=== PATIENT | male | born 1935 | race Caucasian/White ===

== ENCOUNTER 2020-06-07 12:21 | Inpatient (IN) ==
[2020-06-07] MEDS ORDERED: IOPAMIDOL 100 ML BOTTLE IV ONE (12:22)
--- NOTE | 2020-06-07 12:36 | Emergency Department Note ---
HPI General Chief complaint: Shortness of Breath/Dyspnea Stated complaint: shortness of breath Time Seen by Provider: 06/07/20 12:29 Source: patient Mode of arrival: ambulatory Limitations: no limitations History of Present Illness HPI Narrative: Narrative:-year old patient presenting with chief complaint of dyspnea. Patient's dyspnea arose this morning and has been persistent all day with out associated symptoms of substernal chest pain, fever, cough, sputum, rash, wheezing. Patient without significant cough. No exposure to known ill persons. Symptoms are nonprogressive not associated with chest pain or any other issues at this time. Patient has had these symptoms one other occasion and it was a reaction to Ativan. Patient does feel like he is breathing quickly. Related Data Home Medications Medication Instructions Recorded Confirmed acetaminophen 500 mg tablet 1,000 mg PO BID PRN tab 01/29/18 01/05/20 aspirin 325 mg tablet 325 mg PO QAM tab 01/29/18 01/05/20 bisacodyl 5 mg tablet,delayed 10 mg PO QDAY tab 01/29/18 01/05/20 release ferrous sulfate 325 mg (65 mg 325 mg PO QDAY tab 01/29/18 01/05/20 iron) tablet vitamins A,C,A-tsxt-drsgnt 14,320 1 cap PO BID cap 01/29/18 12/07/19 unit-226 mg-200 unit capsule guaifenesin 1,200 mg tablet, 1,200 mg PO BID tab 01/18/19 01/05/20 extended release 12 hr lisinopril 5 mg tablet 5 mg PO QDAY 01/18/19 11/19/19 nitroglycerin 0.4 mg sublingual 0.4 mg SUBLINGUAL Q5-15M PRN 01/18/19 01/05/20 tablet atorvastatin 20 mg tablet 40 mg PO QHS tab 12/07/19 01/05/20 clindamycin phosphate 1 % lotion 1 applic TOPICAL BID 12/07/19 01/05/20 clopidogrel 75 mg tablet 75 mg PO QDAY 12/07/19 01/05/20 empagliflozin 10 mg tablet 10 mg PO QDAY 12/07/19 01/05/20 metformin 500 mg tablet 250 mg PO QDAY tab 12/07/19 01/05/20 multivitamin 1 tab PO QDAY 12/07/19 01/05/20 famotidine 20 mg tablet 40 mg PO QHS tab 01/05/20 01/05/20 hydrochlorothiazide 12.5 mg capsule 12.5 mg PO BID 01/05/20 01/05/20 metoprolol succinate 100 mg 50 mg PO BID tab 01/05/20 01/05/20 tablet,extended release 24 hr empagliflozin [Jardiance] 10 mg PO QDAY 06/07/20 06/07/20 mupirocin 1 applic TOPICAL TID 06/07/20 06/07/20 Previous Rx's Medication Instructions Recorded magnesium oxide 400 mg PO QDAY #90 cap 04/10/20 Allergies Allergy/AdvReac Type Severity Reaction Status Date / Time iodine AdvReac Intermediate Hives Verified 06/07/20 12:24 Review of Systems ROS ROS Narrative: Narrative: All systems ED: reviewed and negative except as stated. 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) Hypertensive disorder (Chronic) Hyperlipidemia (Chronic) Angina pectoris (Chronic) 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) Multiple nodules of lung (Chronic) Asbestosis (Chronic) Chronic obstructive lung disease (Chronic) Shortness of breath (Chronic) Peripheral neuropathy (Chronic) Neck pain (Chronic) Insomnia (Chronic) Failure to thrive (Chronic) History of bladder cancer (Chronic) Overweight (Chronic) GERD (gastroesophageal reflux disease) (Chronic) Depressive disorder (Chronic) Chronic anemia (Chronic) Squamous cell carcinoma (Chronic) Medical History (Updated 06/07/20 @ 15:22 by Robles Zurita MD) Abdominal pain (Resolved) Acute bronchitis (Resolved) Angina pectoris (Chronic) Asbestosis (Chronic) Chest pain (Chronic) Chronic anemia (Chronic) Chronic obstructive lung disease (Chronic) CKD (chronic kidney disease), stage III (Chronic) Coronary artery disease (Chronic) He reports myocardial infarction around 2013 or 2012 and 3 stents at the same time. 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 While I think his primary renal p esteban is diabetes certainly this degree of hypertension could contribute as well. 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 Shortness of breath (Chronic) Squamous cell carcinoma (Chronic) ST elevation myocardial infarction (STEMI) (Chronic) Tingling in extremities (Resolved) Type 2 diabetes mellitus with stage 3 chronic kidney disease, without long-term current use of insulin (Chronic) Given established GFR around 30 to 40 cc/min and moderate proteinuria currently estimated to be 1.5 g/day and a negative work-up for anything but diabetes and hypertension, the diagnosis of diabetic nephropathy is most likely Surgical History History of hernia repair (Chronic ~1955) History of total cystectomy (Chronic) History of urostomy (Chronic ~2014) With bladder repair - urostomy bag in place Hx of CABG (Chronic) 4 stents in total placed now S/P skin biopsy (Chronic ~1985) Family History Brother Diabetes mellitus Father Jaundice Sister Malignant tumor of breast Diabetes mellitus Unknown Diabetes mellitus Grandmother Diabetes mellitus Maternal Mother Heart disease Social History Smoking Status: Former smoker Alcohol Intake Frequency: a few times a month Substance Use: does not use Exam Narrative Narrative: Vital signs and evaluated for evidence of hypoxia or hemodynamic compromise specifically tachycardia/hypotension General: Alert, interactive, appropriate Head: Atraumatic, normocephalic Eyes: Extraocular movements intact, sclera anicteric, no conjunctival injection Ears: Pinnae normal, no discharge Mouth: Oral mucosa moist, no acute swelling or evidence of infection Nares: No nasal discharge, patent bilaterally Neck: Trachea midline, full range of motion Chest: Symmetrical chest wall rise, breathing rapidly with labored respirations not in extremis; not hypoxic on O2 however on room air was Cardiovascular: Patient with excellent perfusion to the extremities; without tachycardia Extremities: Full range of motion joints, no obvious deformities Neuro: Alert, oriented x3, cranial nerves II through XII grossly intact, patient without lateralizing findings such as weakness, or abnormal reflexes Psychiatric: Normal affect, normal mood General Limitations: no limitations Course Vital Signs Vital signs: Vital Signs Temperature 97.9 F 06/07/20 12:21 Pulse Rate 87 06/07/20 12:21 Respiratory Rate 30 H 06/07/20 12:21 Blood Pressure 170/89 06/07/20 12:21 Pulse Oximetry (%) 93 06/07/20 12:21 Temperature 97.9 F 06/07/20 12:21 Pulse Rate 88 06/07/20 15:01 Respiratory Rate 32 H 06/07/20 15:01 Blood Pressure 131/68 06/07/20 15:01 Pulse Oximetry (%) 99 06/07/20 15:01 [facility] Narrative Medical decision making narrative: Acute dyspnea differential diagnosis considered in this case included TN, heart failure, cardiac tamponade, bronchospasm, pulmonary embolism, pneumothorax, pneumonia or infection, and upper airway obstruction. After review of chart and patient history/physical exam/labs as well as imaging the differential diagnosis addressed was acute hypoxic respiratory failure, COPD exacerbation, pneumonia, sepsis, pulmonary edema, pneumothorax, metabolic acidosis, acute respiratory distress syndrome, panic attack, airflow obstruction, restrictive lung disease, aspiration, congestive heart failure, hypercapnia, influenza, bronchitis, upper respiratory infection, pulmonary embolism, cardiac tamponade, valvular obstruction, TN/ACS, and arrhythmia in my medical opinion this patient has dyspnea that reasonably does/not require admission to the hospital. Wells criteria applied: Clinical symptoms of DVT would have been awarded 3 points, other diagnosis less likely than PE would have been awarded 3 points, immobilization 3 or more days or surgery in the previous 4 weeks would have been awarded 1.5 points, history of previous DVT/PE would have been awarded 1.5 points, with hemoptysis, and malignancy each receiving one point if positive. PERC rule is applied when well score is less than 2 and the following factors were considered: Age less than 50, heart rate less than 100, oxyhemoglobin saturation greater than 95%, no hemoptysis, no estrogen use, no prior DVT/PE, no unilateral leg swelling, no surgery trauma requiring hospitalization within the past 4 weeks: had the PERC rule been positive patient would have received d-dimer with follow-up CTPA if positive. Discussed case with the hospitalist Dr. Duran and the consensus medical opinion is to admit the patient to the hospital for management. Noted to have bilateral lower lobe pneumonia. Rocephin is given lactate was negative here in the emergency department patient noted to be hypoxic on room air as well as tachypneic. Patient was not tachycardic or hypotensive during his stay. Patient did have positive d-dimer and CTPA did not demonstrate a PE however patient does have bilateral lower lobe infiltrates, also patient is noted to have elevated white blood cell count. Lab Data Result diagrams: 06/07/20 12:34 06/07/20 12:33 Labs: Lab Results 06/07/20 06/07/20 06/07/20 Range/Units 12:33 12:33 12:34 WBC 20.8 H (4.50-11.00) K/mcL RBC 5.14 (4.63-6.08) M/mcL Hgb 15.8 (13.7-17.5) g/dL Hct 50.1 (40.1-51.0) % MCV 97.5 (80.0-100.0) fL MCH 30.7 (26.0-34.0) pg MCHC 31.5 (31.0-36.0) g/dL RDW 14.2 (11.5-14.5) % Plt Count 234 (140-440) K/mcL MPV 10.3 (7.4-10.4) fL Gran % 90.8 H (38.0-78.0) % Lymph % (Auto) 3.5 L (15.5-49.0) % Swain % (Auto) 4.6 (1.0-12.0) % Eos % (Auto) 0.7 (0.0-7.0) % Baso % (Auto) 0.4 (0.0-2.0) % Gran # 18.91 H (1.80-8.00) K/mcL Lymph # (Auto) 0.72 L (1.50-4.80) K/mcL Swain # (Auto) 0.96 H (0.10-0.90) K/mcL Eos # (Auto) 0.15 (0.00-0.70) K/mcL Baso # (Auto) 0.09 (0.00-0.30) K/mcL D-Dimer (0.00-0.40) ug/ml ABG Methemoglobin (0.4-1.5) % VBG pH (7.32-7.42) U VBG pCO2 (41.0-51.0) mmHg VBG pO2 (25-40) mmHg VBG HCO3 (24.0-28.0) mmol/L VBG Total CO2 (25.0-29.0) mmol/L VBG O2 Saturation (40.0-70.0) % VBG Base Excess (-2.0-2.0) VBG Lactic Acid (0.5-2.0) mmol/L Carboxyhemoglobin (0.0-1.5) % THgb Total Hemoglobin (13.5-16.5) gm/dL O2 Delivery Level Sodium 139 (133-145) mmol/L Potassium 5.1 (3.3-5.1) mmol/L Chloride 107 (96-108) mmol/L Carbon Dioxide 17 L (22-30) mmol/L Anion Gap 15.0 (8-16) BUN 20 (8-23) mg/dl Creatinine 1.5 H (0.7-1.2) mg/dl GFR Calculation 42 Glucose 114 H (70-105) mg/dL Calcium 10.1 (8.6-10.4) mg/dl Total Bilirubin 0.4 (0.0-1.0) mg/dL AST 38 H (0-37) U/l ALT 48 H (0-40) U/l Alkaline Phosphatase 155 H (39-117) U/L Troponin T (0-0.03) ng/ml Total Protein 7.3 (5.9-8.4) gm/dL Albumin 3.7 (3.2-5.2) gm/dL Globulin 3.6 (2.2-3.7) gm/dL Albumin/Globulin Ratio 1.0 (1.0-2.3) Procalcitonin 0.29 (<0.10) ng/mL 06/07/20 06/07/20 06/07/20 Range/Units 12:37 12:37 14:06 WBC (4.50-11.00) K/mcL RBC (4.63-6.08) M/mcL Hgb (13.7-17.5) g/dL Hct (40.1-51.0) % MCV (80.0-100.0) fL MCH (26.0-34.0) pg MCHC (31.0-36.0) g/dL RDW (11.5-14.5) % Plt Count (140-440) K/mcL MPV (7.4-10.4) fL Gran % (38.0-78.0) % Lymph % (Auto) (15.5-49.0) % Swain % (Auto) (1.0-12.0) % Eos % (Auto) (0.0-7.0) % Baso % (Auto) (0.0-2.0) % Gran # (1.80-8.00) K/mcL Lymph # (Auto) (1.50-4.80) K/mcL Swain # (Auto) (0.10-0.90) K/mcL Eos # (Auto) (0.00-0.70) K/mcL Baso # (Auto) (0.00-0.30) K/mcL D-Dimer 1.00 H (0.00-0.40) ug/ml ABG Methemoglobin (0.4-1.5) % VBG pH (7.32-7.42) U VBG pCO2 (41.0-51.0) mmHg VBG pO2 (25-40) mmHg VBG HCO3 (24.0-28.0) mmol/L VBG Total CO2 (25.0-29.0) mmol/L VBG O2 Saturation (40.0-70.0) % VBG Base Excess (-2.0-2.0) VBG Lactic Acid 1.1 (0.5-2.0) mmol/L Carboxyhemoglobin (0.0-1.5) % THgb Total Hemoglobin (13.5-16.5) gm/dL O2 Delivery Level Sodium (133-145) mmol/L Potassium (3.3-5.1) mmol/L Chloride (96-108) mmol/L Carbon Dioxide (22-30) mmol/L Anion Gap (8-16) BUN (8-23) mg/dl Creatinine (0.7-1.2) mg/dl GFR Calculation Glucose (70-105) mg/dL Calcium (8.6-10.4) mg/dl Total Bilirubin (0.0-1.0) mg/dL AST (0-37) U/l ALT (0-40) U/l Alkaline Phosphatase (39-117) U/L Troponin T < 0.01 (0-0.03) ng/ml Total Protein (5.9-8.4) gm/dL Albumin (3.2-5.2) gm/dL Globulin (2.2-3.7) gm/dL Albumin/Globulin Ratio (1.0-2.3) Procalcitonin (<0.10) ng/mL 06/07/20 Range/Units 14:06 WBC (4.50-11.00) K/mcL RBC (4.63-6.08) M/mcL Hgb (13.7-17.5) g/dL Hct (40.1-51.0) % MCV (80.0-100.0) fL MCH (26.0-34.0) pg MCHC (31.0-36.0) g/dL RDW (11.5-14.5) % Plt Count (140-440) K/mcL MPV (7.4-10.4) fL Gran % (38.0-78.0) % Lymph % (Auto) (15.5-49.0) % Swain % (Auto) (1.0-12.0) % Eos % (Auto) (0.0-7.0) % Baso % (Auto) (0.0-2.0) % Gran # (1.80-8.00) K/mcL Lymph # (Auto) (1.50-4.80) K/mcL Swain # (Auto) (0.10-0.90) K/mcL Eos # (Auto) (0.00-0.70) K/mcL Baso # (Auto) (0.00-0.30) K/mcL D-Dimer (0.00-0.40) ug/ml ABG Methemoglobin 0 L (0.4-1.5) % VBG pH 7.29 L (7.32-7.42) U VBG pCO2 41.2 (41.0-51.0) mmHg VBG pO2 52 H (25-40) mmHg VBG HCO3 19.5 L (24.0-28.0) mmol/L VBG Total CO2 20.8 L (25.0-29.0) mmol/L VBG O2 Saturation 82.8 H (40.0-70.0) % VBG Base Excess -6.6 L (-2.0-2.0) VBG Lactic Acid (0.5-2.0) mmol/L Carboxyhemoglobin 5.2 H (0.0-1.5) % THgb Total Hemoglobin 14.6 (13.5-16.5) gm/dL O2 Delivery Level Not Reportable Sodium (133-145) mmol/L Potassium (3.3-5.1) mmol/L Chloride (96-108) mmol/L Carbon Dioxide (22-30) mmol/L Anion Gap (8-16) BUN (8-23) mg/dl Creatinine (0.7-1.2) mg/dl GFR Calculation Glucose (70-105) mg/dL Calcium (8.6-10.4) mg/dl Total Bilirubin (0.0-1.0) mg/dL AST (0-37) U/l ALT (0-40) U/l Alkaline Phosphatase (39-117) U/L Troponin T (0-0.03) ng/ml Total Protein (5.9-8.4) gm/dL Albumin (3.2-5.2) gm/dL Globulin (2.2-3.7) gm/dL Albumin/Globulin Ratio (1.0-2.3) Procalcitonin (<0.10) ng/mL Discharge Plan Patient/Caregiver Discharge Instructions Pt seen by [employer] SPECIALIST/PA only: No Clinical Impression: Pneumonia Qualifiers: Pneumonia type: due to unspecified organism Laterality: bilateral Lung location: lower lobe of lung Qualified Code(s): J18.9 - Pneumonia, unspecified organism Patient Disposition: Xfer As Inpt ([facility]) Follow up with: Rima Shah ARNP [Primary Care Provider] - Prescriptions: No Action magnesium oxide 400 mg magnesium capsule 400 mg PO QDAY Qty: 90 RF: 4 aspirin 325 mg tablet 325 mg PO QAM RF: 0 bisacodyl [Dulcolax (bisacodyl)] 5 mg tablet,delayed release (DR/EC) 10 mg PO QDAY RF: 0 ferrous sulfate 325 mg (65 mg iron) tablet 325 mg PO QDAY RF: 0 vitamins A,C,Y-hlqz-hdsdco [PreserVision AREDS] 14,320-226-200 [id number]-ci-[id number] capsule 1 cap PO BID RF: 0 acetaminophen [Tylenol Extra Strength] 500 mg tablet 1,000 mg PO BID PRN (Reason: Pain) RF: 0 guaifenesin [Mucinex] 1,200 mg tablet extended release 12hr 1,200 mg PO BID RF: 0 nitroglycerin 0.4 mg tablet, sublingual 0.4 mg SUBLINGUAL Q5-15M PRN (Reason: Chest Pain) RF: 0 lisinopril 5 mg tablet 5 mg PO QDAY RF: 0 Hold Instructions: Order Change atorvastatin [Lipitor] 20 mg tablet 40 mg PO QHS RF: 0 metformin 500 mg tablet 250 mg PO QDAY RF: 0 hydrochlorothiazide 12.5 mg capsule 12.5 mg PO BID RF: 0 metoprolol succinate 100 mg tablet extended release 24 hr 50 mg PO BID RF: 0 Jardiance 10 mg Tablet 10 mg PO QDAY RF: 0 mupirocin 2 % Ointment 1 applic TOPICAL TID RF: 0 clindamycin phosphate 1 % lotion 1 applic TOPICAL BID RF: 0 clopidogrel 75 mg tablet 75 mg PO QDAY RF: 0 Jardiance 10 mg tablet 10 mg PO QDAY RF: 0 multivitamin Tablet 1 tab PO QDAY RF: 0 famotidine 20 mg tablet 40 mg PO QHS RF: 0
--- NOTE | 2020-06-07 12:59 | XRay Report ---
INDICATION: sob. History of pleural calcifications and pleural based masses TECHNIQUE: AP portable semiupright chest x-ray COMPARISON: Previous chest x-ray dated 11/19/2019. Previous CT scan dated 01/11/2020 FINDINGS: Lungs:Focal infiltrate at the right lung base. This is at the cardiophrenic angle and appears new since 11/11/2019. Findings are consistent with pneumonia. Follow-up radiographs recommended. No other focal pulmonary parenchymal infiltrate Heart, vascular:No significant cardiomegaly. Pulmonary vascularity is normal. No pulmonary edema or pulmonary congestion Mediastinum, dianne:No mediastinal widening. No hilar mass Pleura:No pleural fluid. Pleural calcifications and masses are not well visualized on routine chest x-ray. Skeletal:Negative. IMPRESSION: 1. Right basilar infiltrate consistent with pneumonia. 2. Follow-up recommended Interpreted and Authenticated by: Luis Juares 06/07/20
[2020-06-07 13:35] LABS: Basophils # (Auto) 0.09 K/mcL (0.00-0.30); Basophils % (Auto) 0.4 % (0.0-2.0); Eosinophils # (Auto) 0.15 K/mcL (0.00-0.70); Eosinophils % (Auto) 0.7 % (0.0-7.0); Granulocytes % (Auto) 90.8 % (38.0-78.0); Hematocrit 50.1 % (40.1-51.0); Hemoglobin 15.8 g/dL (13.7-17.5); Lymphocytes # (Auto) 0.72 K/mcL (1.50-4.80); Lymphocytes % (Auto) 3.5 % (15.5-49.0); Mean Cell Volume 97.5 fL (80.0-100.0); Mean Corpuscular HGB Conc 31.5 g/dL (31.0-36.0); Mean Platelet Volume 10.3 fL (7.4-10.4); Monocytes # (Auto) 0.96 K/mcL (0.10-0.90); Monocytes % (Auto) 4.6 % (1.0-12.0); Platelet Count 234 K/mcL (140-440); RBC 5.14 M/mcL (4.63-6.08); Red Cell Distribution Width 14.2 % (11.5-14.5); WBC 20.8 K/mcL (4.50-11.00)
[2020-06-07] MEDS ORDERED: cefTRIAXone 1 GM VIAL IV ONE ×2 (13:50→16:00)
[2020-06-07 13:58] LABS: ALT/SGPT 48 U/l (0-40); AST/SGOT 38 U/l (0-37); Albumin 3.7 gm/dL (3.2-5.2); Alkaline Phosphatase 155 U/L (39-117); Bilirubin,Total 0.4 mg/dL (0.0-1.0); Blood Urea Nitrogen 20 mg/dl (8-23); Calcium 10.1 mg/dl (8.6-10.4); Carbon Dioxide 17 mmol/L (22-30); Chloride 107 mmol/L (96-108); Globulin 3.6 gm/dL (2.2-3.7); Glomerular Filtration Rate 42; Glucose 114 mg/dL (70-105)
[2020-06-07] MEDS ORDERED: diphenhydrAMINE 50 MG/ML VIAL IV ONE (14:05)
[2020-06-07 14:26] LABS: ABG Methemoglobin 0 % (0.4-1.5); Total Hemoglobin 14.6 gm/dL (13.5-16.5); VBG Base Excess -6.6 (-2.0-2.0); VBG HCO3 19.5 mmol/L (24.0-28.0); VBG Oxygen Saturation 82.8 % (40.0-70.0); VBG PCO2 41.2 mmHg (41.0-51.0); VBG PH 7.29 U (7.32-7.42); VBG PO2 52 mmHg (25-40); VBG Total CO2 20.8 mmol/L (25.0-29.0)
--- NOTE | 2020-06-07 14:43 | Internal Med History&Physical ---
HPI History of Present Illness Patient information: Note initiated : 06/07/20 at 2:42 pm Service Date, if different from initiated Date: [] Patient: Alex Boucher a 85 y/o M admitted on for shortness of breath. Chief Complaint: [] History of present illness: Mr. Boucher is a 85 year old M who resides at home along with his daughter with medical history of CKD stage III/CAD/HTN/HLD/DM type II , presented to the ER with 24-hour onset of worsening shortness of breath. Symptoms started roughly 3 days ago with increasing cough productive white sputum. No associated orthopnea or PND. He denies sick contacts or associated fever chills or body aches. This morning he could barely catch her breath and subsequently presents to the ER. Initial work-up was consistent with bibasilar pneumonia. White count over 20,000. Blood cultures were drawn and antibiotics initiated subsequently hospitalist service was consulted. At the time evaluation patient is fatigued lethargic and short of breath. he was able to answer most the question and endorse history as above. Denies recent hospitalization for pneumonia or exposure to healthcare facility. Also denies changes in medication, weight gain, diarrhea but endorses loss of appetite and progressive weakness and fatigue Review of systems 10 point review system was performed and is negative except for ones discussed above [facility] Medical History (Updated 06/07/20 @ 15:22 by Robles Zurita MD) Abdominal pain (Resolved) Acute bronchitis (Resolved) Angina pectoris (Chronic) Asbestosis (Chronic) Chest pain (Chronic) Chronic anemia (Chronic) Chronic obstructive lung disease (Chronic) CKD (chronic kidney disease), stage III (Chronic) Coronary artery disease (Chronic) He reports myocardial infarction around 2013 or 2012 and 3 stents at the same time. 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 While I think his primary renal problem is diabetes certainly this degree of hypertension could contribute as well. 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 Shortness of breath (Chronic) Squamous cell carcinoma (Chronic) ST elevation myocardial infarction (STEMI) (Chronic) Tingling in extremities (Resolved) Type 2 diabetes mellitus with stage 3 chronic kidney disease, without long-term current use of insulin (Chronic) Given established GFR around 30 to 40 cc/min and moderate proteinuria currently estimated to be 1.5 g/day and a negative work-up for anything but diabetes and hypertension, the diagnosis of diabetic nephropathy is most likely Surgical History History of hernia repair (Chronic ~1955) History of total cystectomy (Chronic) History of urostomy (Chronic ~2014) With bladder repair - urostomy bag in place Hx of CABG (Chronic) 4 stents in total placed now S/P skin biopsy (Chronic ~1985) Family History Brother Diabetes mellitus Father Jaundice Sister Malignant tumor of breast Diabetes mellitus Unknown Diabetes mellitus Grandmother Diabetes mellitus Maternal Mother Heart disease Social History (Updated 01/05/20 @ 10:11 by Santiago Gaspar MD) education level: high school occupational status: retired sexually active: No other: Children-4 smoking status: Former smoker quit date: 11/23/87 pack-years: 20 alcohol intake frequency: a few times a month substance use type: does not use seatbelt use: always working smoke detector in home: Yes firearms in home: No MEDS/ALLERGIES Home Medications and Allergies Home Medications Medication Instructions Recorded Confirmed Type acetaminophen 500 mg tablet 1,000 mg PO BID PRN tab 01/29/18 06/07/20 History aspirin 325 mg tablet 325 mg PO QAM tab 01/29/18 06/07/20 History bisacodyl 5 mg tablet,delayed 10 mg PO QDAY tab 01/29/18 01/05/20 History release ferrous sulfate 325 mg (65 mg 325 mg PO QDAY tab 01/29/18 01/05/20 History iron) tablet vitamins A,C,P-ptmb-ahxoax 14,320 1 cap PO BID cap 01/29/18 12/07/19 History unit-226 mg-200 unit capsule guaifenesin 1,200 mg tablet, 1,200 mg PO BID tab 01/18/19 01/05/20 History extended release 12 hr lisinopril 5 mg tablet 5 mg PO QDAY 01/18/19 11/19/19 History nitroglycerin 0.4 mg sublingual 0.4 mg SUBLINGUAL Q5-15M PRN 01/18/19 01/05/20 History tablet atorvastatin 20 mg tablet 40 mg PO QHS tab 12/07/19 06/07/20 History clindamycin phosphate 1 % lotion 1 applic TOPICAL BID 12/07/19 01/05/20 History clopidogrel 75 mg tablet 75 mg PO QDAY 12/07/19 06/07/20 History empagliflozin 10 mg tablet 10 mg PO QDAY 12/07/19 01/05/20 History metformin 500 mg tablet 250 mg PO QDAY tab 12/07/19 06/07/20 History multivitamin 1 tab PO QDAY 12/07/19 01/05/20 History famotidine 20 mg tablet 40 mg PO QHS tab 01/05/20 06/07/20 History hydrochlorothiazide 12.5 mg capsule 12.5 mg PO BID 01/05/20 01/05/20 History metoprolol succinate 100 mg 50 mg PO BID tab 01/05/20 06/07/20 History tablet,extended release 24 hr magnesium oxide 400 mg PO QDAY #90 cap 04/10/20 06/07/20 Rx empagliflozin [Jardiance] 10 mg PO QDAY 06/07/20 06/07/20 History mupirocin 1 applic TOPICAL TID 06/07/20 06/07/20 History Allergies Allergy/AdvReac Type Severity Reaction Status Date / Time iodine AdvReac Intermediate Hives Verified 06/07/20 12:24 EXAM Constitutional Vitals: Temp Pulse Resp BP Pulse Ox 97.9 F 86 31 H 127/61 95 06/07/20 12:21 06/07/20 14:01 06/07/20 14:01 06/07/20 14:01 06/07/20 14:01 Head normocephalic Oral cavity moist No ear or nose discharge Eye movement symmetrical, no subconjunctival pallor Neck supple no lymphadenopathy S1-S2 occasionally irregular Labored breathing, diminished breath sounds bilateral bases Nondistended nontender abdomen Lower extremity no cyanosis clubbing or joint swelling Skin no suspicious lesion Psych anxious but alert cooperative Neuro normal higher function DATA Data Completed and Pending Labs on day of discharge: Labs from last 24 hours 06/07/20 06/07/20 06/07/20 14:06 14:06 12:37 WBC RBC Hgb Hct MCV MCH MCHC RDW Plt Count MPV Gran % Lymph % (Auto) [place] % (Auto) Eos % (Auto) Baso % (Auto) Gran # Lymph # (Auto) [place] # (Auto) Eos # (Auto) Baso # (Auto) D-Dimer ABG Methemoglobin 0 L VBG pH 7.29 L VBG pCO2 41.2 VBG pO2 52 H VBG HCO3 19.5 L VBG Total CO2 20.8 L VBG O2 Saturation 82.8 H VBG Base Excess -6.6 L VBG Lactic Acid Pending Carboxyhemoglobin 5.2 H Total Hemoglobin 14.6 O2 Delivery Level Not Reportable Sodium Potassium Chloride Carbon Dioxide Anion Gap BUN Creatinine GFR Calculation Glucose Calcium Total Bilirubin AST ALT Alkaline Phosphatase Troponin T < 0.01 Total Protein Albumin Globulin Albumin/Globulin Ratio Procalcitonin 06/07/20 06/07/20 06/07/20 12:37 12:34 12:33 WBC 20.8 H RBC 5.14 Hgb 15.8 Hct 50.1 MCV 97.5 MCH 30.7 MCHC 31.5 RDW 14.2 Plt Count 234 MPV 10.3 Gran % 90.8 H Lymph % (Auto) 3.5 L [place] % (Auto) 4.6 Eos % (Auto) 0.7 Baso % (Auto) 0.4 Gran # 18.91 H Lymph # (Auto) 0.72 L [place] # (Auto) 0.96 H Eos # (Auto) 0.15 Baso # (Auto) 0.09 D-Dimer 1.00 H ABG Methemoglobin VBG pH VBG pCO2 VBG pO2 VBG HCO3 VBG Total CO2 VBG O2 Saturation VBG Base Excess VBG Lactic Acid Carboxyhemoglobin Total Hemoglobin O2 Delivery Level Sodium Potassium Chloride Carbon Dioxide Anion Gap BUN Creatinine GFR Calculation Glucose Calcium Total Bilirubin AST ALT Alkaline Phosphatase Troponin T Total Protein Albumin Globulin Albumin/Globulin Ratio Procalcitonin 0.29 06/07/20 12:33 WBC RBC Hgb Hct MCV MCH MCHC RDW Plt Count MPV Gran % Lymph % (Auto) [place] % (Auto) Eos % (Auto) Baso % (Auto) Gran # Lymph # (Auto) [place] # (Auto) Eos # (Auto) Baso # (Auto) D-Dimer ABG Methemoglobin VBG pH VBG pCO2 VBG pO2 VBG HCO3 VBG Total CO2 VBG O2 Saturation VBG Base Excess VBG Lactic Acid Carboxyhemoglobin Total Hemoglobin O2 Delivery Level Sodium 139 Potassium 5.1 Chloride 107 Carbon Dioxide 17 L Anion Gap 15.0 BUN 20 Creatinine 1.5 H GFR Calculation 42 Glucose 114 H Calcium 10.1 Total Bilirubin 0.4 AST 38 H ALT 48 H Alkaline Phosphatase 155 H Troponin T Total Protein 7.3 Albumin 3.7 Globulin 3.6 Albumin/Globulin Ratio 1.0 Procalcitonin A/P Narrative A/P Narrative: * Bilateral pneumonia-empiric coverage for community-acquired/aspiration. Pancultures/aspiration precautions. COVID-19 test * Sepsis with leukocytosis-continue management guidelines. Antibiotic coverage. * History of CKD stage III monitor renal function. Avoid nephrotoxins. * DM type II continue CC diet/sliding scale insulin/sitagliptin * History of hypertension-hold hypertensives until sepsis resolved. * History of CAD continue aspirin/Plavix/beta-sharon * DNR * Prophylaxis heparin Plan * Inpatient admission * Antibiotic coverage * Sepsis management guidelines * Pre-existing medical condition management home meds except for antihypertensives which will be restarted once systolics over 140 * Aspiration precautions * PT OT nutrition support * Discharge planning Time Spent With Patient Time: Total time spent is greater than 50% in coordination of care (as documented) at patient's floor/unit and/or counseling patient:
--- NOTE | 2020-06-07 14:59 | Cat Scan Report ---
INDICATION: abnormal d-dimer COMPARISON: Previous CT chest dated 01/11/2020 TECHNIQUE: Axial images obtained through the chest. 80ml Isovue 370 injected intravenously, and scanning was performed during pulmonary arterial phase. Sagittally and coronally reformatted images were obtained. MIP reformatted images. FINDINGS: Lungs:There is increased bilateral lower lobe infiltrate. Findings are nonspecific but pneumonia is possible Mediastinum, vascular:Main pulmonary artery, right pulmonary artery, left pulmonary artery are negative. No intraluminal filling defects. No lobar, segmental, or subsegmental emboli. Thoracic aorta is negative. No aneurysmal dilatation No pathologic mediastinal or hilar adenopathy Heart:No cardiomegaly. No pericardial effusion. Pleura:Multiple calcified and noncalcified pleural plaques. There is a pleural-based soft tissue mass at the right lung base. This measures 4.8 cm in maximum diameter. This is unchanged. There is a small subpleural mass at the left lung base. This measures 1.9 cm. This is unchanged. There is no free flowing pleural effusion Axilla, supraclavicular regions, chest wall:No pathologic axillary or supraclavicular adenopathy. Musculoskeletal:Negative thoracic spine. No compression fracture. No lytic lesion. No rib or sternal lesions Upper Abdomen:There are low density lesions in the liver. These appear stable IMPRESSION: 1. Negative pulmonary CTA 2. Multiple calcified and noncalcified pleural plaques. There are pulmonary parenchymal masses at both lung bases. Appearance is unchanged since 01/11/2020 3. Mild bilateral lower lobe infiltrates. Pneumonia is possible. The exam was performed using radiation dose optimization techniques including, but not limited to, automated exposure control, adjustment of the mA and/or kV according to patient size and use of iterative reconstruction technique. Interpreted and Authenticated by: Luis Juares 06/07/20
[2020-06-07] MEDS ORDERED: POLYETHYLENE GLYCOL 3350 17 GM PACKET PO PRN (15:48)
[2020-06-07] MEDS ORDERED: DEXTROSE 50% 50 ML VIAL IV PRN (15:48)
[2020-06-07] MEDS ORDERED: POTASSIUM CHLORIDE 20 MEQ PACKET PO PRN (15:48)
[2020-06-07] MEDS ORDERED: hydrALAZINE 20 MG/ML VIAL IV PRN (15:48)
[2020-06-07] MEDS ORDERED: ONDANSETRON 4 MG/2 ML VIAL IV PRN (15:48)
[2020-06-07] MEDS ORDERED: ONDANSETRON 4 MG ODT TABLET SL PRN (15:48)
[2020-06-07] MEDS ORDERED: BISACODYL 10 MG SUPP.RECT PR PRN (15:48)
[2020-06-07] MEDS ORDERED: MAGNESIUM SULFATE 2 GM/50 ML BAG IV PRN (15:48)
[2020-06-07] MEDS ORDERED: MELATONIN 3 MG TABLET PO PRN (15:48)
[2020-06-07] MEDS ORDERED: DEXTROSE 31 GM ORAL.SUSP PO PRN (15:48)
[2020-06-07] MEDS ORDERED: ACETAMINOPHEN 325 MG TABLET PO PRN (15:48)
[2020-06-07] MEDS: IPRATROPIUM/ALBUTEROL 3 ML AMPUL.NEB NEB SCH ×3 (16:25→22:47)
[2020-06-07] MEDS ORDERED: IPRATROPIUM/ALBUTEROL 3 ML AMPUL.NEB NEB ONE (16:26)
[2020-06-07] MEDS: LEVOFLOXACIN 750 MG/150 ML BAG IV SCH (16:31)
[2020-06-07] MEDS: INSULIN LISPRO 1 UNIT/0.01 ML UNIT SQ SCH ×2 (16:35→20:34)
[2020-06-07] MEDS: 0.9 % SODIUM CHLORIDE 10 ML SYRINGE IV SCH (20:35)
[2020-06-07] MEDS: HEPARIN 5,000 UNIT/ML VIAL SQ SCH (20:43)
[2020-06-07] MEDS: DOCUSATE SODIUM 100 MG CAPSULE PO SCH (20:43)
[2020-06-07] MEDS: SENNOSIDES/DOCUSATE SODIUM 1 TAB TABLET PO SCH (20:43)
[2020-06-08] MEDS: IPRATROPIUM/ALBUTEROL 3 ML AMPUL.NEB NEB SCH ×7 (03:26→22:57)
[2020-06-08] MEDS: 0.9 % SODIUM CHLORIDE 10 ML SYRINGE IV SCH ×3 (05:45→20:53)
[2020-06-08 06:25] LABS: Hematocrit 44.1 % (40.1-51.0); Hemoglobin 13.8 g/dL (13.7-17.5); Mean Cell Volume 97.6 fL (80.0-100.0); Mean Corpuscular HGB Conc 31.3 g/dL (31.0-36.0); Mean Platelet Volume 10.3 fL (7.4-10.4); Platelet Count 169 K/mcL (140-440); RBC 4.52 M/mcL (4.63-6.08); Red Cell Distribution Width 14.2 % (11.5-14.5); WBC 13.3 K/mcL (4.50-11.00)
[2020-06-08 06:49] LABS: Bilirubin,Direct < 0.2 mg/dL (0.0-0.3); Chloride 105 mmol/L (96-108)
[2020-06-08 06:51] LABS: ALT/SGPT 33 U/l (0-40); AST/SGOT 23 U/l (0-37); Albumin 3.4 gm/dL (3.2-5.2); Albumin/Globulin Ratio 1.1 (1.0-2.3); Alkaline Phosphatase 132 U/L (39-117); Bilirubin,Total 0.3 mg/dL (0.0-1.0); Blood Urea Nitrogen 23 mg/dl (8-23); Carbon Dioxide 19 mmol/L (22-30); Globulin 3.2 gm/dL (2.2-3.7); Glomerular Filtration Rate 39; Glucose 130 mg/dL (70-105); Lactate Dehydrogenase 175 U/L (94-250); Triglycerides 157 mg/dl (<150); Uric Acid 5.4 mg/dL (2.5-8.0)
[2020-06-08 06:54] LABS: Band Neutrophils % 7 % (0-10); Lymphocytes % 2 % (15-49); Monocytes % (Manual) 2 % (1-12); Platelet Estimate NORMAL (NORMAL); RBC Morphology NORMAL (NORMAL); Segmented Neutrophils % 89 % (38-78)
[2020-06-08] MEDS: INSULIN LISPRO 1 UNIT/0.01 ML UNIT SQ SCH ×4 (07:56→20:52)
--- NOTE | 2020-06-08 09:05 | Internal Med Progress Note ---
SUBJECTIVE Subjective Patient information: Note initiated : 06/08/20 at 9:02 am Service Date, if different from initiated Date: [] Patient: Alex Boucher 85 y/o M admitted on 06/07/20 for shortness of breath. Mr. Boucher is a 85 year old M who resides at home along with his daughter with medical history of CKD stage III/CAD/HTN/HLD/DM type II , presented to the ER with 24-hour onset of worsening shortness of breath. Symptoms started roughly 3 days ago with increasing cough productive white sputum. No associated orthopnea or PND. He denies sick contacts or associated fever chills or body aches. This morning he could barely catch her breath and subsequently presents to the ER. Initial work-up was consistent with bibasilar pneumonia. White count over 20,000. Blood cultures were drawn and antibiotics initiated subsequently hospitalist service was consulted. At the time evaluation patient is fatigued lethargic and short of breath. he was able to answer most the question and endorse history as above. Denies recent hospitalization for pneumonia or exposure to healthcare facility. Also denies changes in medication, weight gain, diarrhea but endorses loss of appetite and progressive weakness and fatigue 06/08-patient doing well. Improved shortness of breath. White count down to 13,000. No overnight fever chills. Persistent tachypnea. Refused diabetic diet, wants regular diet. Improving sepsis. Constitutional Vitals: Vital Signs Temp Pulse Resp BP Pulse Ox 98.8 F 82 16 119/66 96 06/08/20 07:00 06/08/20 07:12 06/08/20 07:12 06/08/20 07:00 06/08/20 07:00 Period Temp Pulse Resp BP Sys/Branch Pulse Ox Last 24 Hr 97.9 F-98.8 F 82-96 16-39 101-170/53-89 91-100 Intake and Output 06/07/20 06/08/20 06/08/20 21:59 05:59 13:59 Intake Total 150 100 Output Total 825 375 Balance -675 -781 Weight 84.867 kg alert oriented Labored breathing but improved since previous day Nontender nondistended abdomen, urostomy in place. No lymphedema Intake & Output: Intake & Output 06/07/20 06/08/20 06/08/20 21:59 05:59 13:59 Intake Total 150 100 Output Total 825 375 Balance -675 -120 Weight 84.867 kg Intake: IV 150 Oral 100 Output: Urine Catheter Amount 350 175 Void Amount 475 200 Other: Urine Appearance Mucous Threads Clear Urine Color Bright Yellow Pale Urine Odor Normal # Bowel Movements 1 OBJ DATA Labs CBC & Chem 7: 06/08/20 04:52 06/08/20 04:52 Labs: Abnormal Lab Results 06/08/20 06/08/20 06/07/20 04:52 04:52 14:06 WBC 13.3 H RBC 4.52 L Gran % Lymph % (Auto) Gran # Lymph # (Auto) [place] # (Auto) Seg Neutrophils % 89 H Lymphocytes % 2 L D-Dimer ABG Methemoglobin 0 L VBG pH 7.29 L VBG pO2 52 H VBG HCO3 19.5 L VBG Total CO2 20.8 L VBG O2 Saturation 82.8 H VBG Base Excess -6.6 L Carboxyhemoglobin 5.2 H Carbon Dioxide 19 L Creatinine 1.6 H Glucose 130 H AST ALT Alkaline Phosphatase 132 H Triglycerides 157 H 06/07/20 06/07/20 06/07/20 12:37 12:34 12:33 WBC 20.8 H RBC Gran % 90.8 H Lymph % (Auto) 3.5 L Gran # 18.91 H Lymph # (Auto) 0.72 L [place] # (Auto) 0.96 H Seg Neutrophils % Lymphocytes % D-Dimer 1.00 H ABG Methemoglobin VBG pH VBG pO2 VBG HCO3 VBG Total CO2 VBG O2 Saturation VBG Base Excess Carboxyhemoglobin Carbon Dioxide 17 L Creatinine 1.5 H Glucose 114 H AST 38 H ALT 48 H Alkaline Phosphatase 155 H Triglycerides Meds: Medications Acetaminophen (Tylenol) 650 mg PO Q4-6HP PRN; Protocol PRN Reason: Per Pain Protocol/Fever > 101 Albuterol/Ipratropium (Duoneb) 3 ml NEB Q4HRT [facility] Last Admin: 06/08/20 07:11 Dose: 3 ml Documented by: Bisacodyl (Dulcolax) 10 mg MS Q2-3DAYS PRN PRN Reason: Constipation Dextrose (Dextrose 50%) 0 ml IV UD PRN PRN Reason: Hypoglycemia Diagnostic Test (Pha) (Accu-Chek) 1 each FS ACHS [facility] Last Admin: 06/08/20 07:54 Dose: 1 each Documented by: Docusate Sodium (Colace) 100 mg PO BID [facility] Last Admin: 06/07/20 20:43 Dose: 100 mg Documented by: Glucose (Insta-Glucose) 15 gm PO PRN PRN PRN Reason: Hypoglycemia Heparin Sodium (Porcine) (Heparin) 5,000 unit SQ Q12 [facility] Last Admin: 06/07/20 20:43 Dose: 5,000 unit Documented by: Hydralazine HCl (Apresoline) 10 mg IV Q4-6HP PRN PRN Reason: Hypertension Ceftriaxone Sodium 2 gm/ (Dextrose) 50 mls @ 100 mls/hr IV DAILY [facility]; Protocol Magnesium Sulfate (Magnesium Sulfate) 2 gm in 50 mls @ 50 mls/hr IV UD PRN PRN Reason: MG = or < 1.7 Levofloxacin (Levaquin) 750 mg in 150 mls @ 100 mls/hr IV Q48H [facility]; Protocol Last Infusion: 06/07/20 18:18 Dose: Infused Documented by: Insulin Human Lispro (Humalog) 0 unit SQ ACHS [facility]; Protocol Last Admin: 06/08/20 07:56 Dose: Not Given Documented by: Iron Carb/Multivit/Food Service Coordinator/Folic Acid (Multivitamin W/Minerals) 1 tab PO DAILY [facility] Melatonin (Melatonin 3mg Tablet) 3 mg PO HSP PRN PRN Reason: Insomnia Ondansetron HCl (Zofran Odt) 4 mg SL Q4-6HP PRN; Protocol PRN Reason: Nausea And Vomiting Ondansetron HCl (Zofran) 4 mg IV Q4-6HP PRN; Protocol PRN Reason: Nausea And Vomiting Polyethylene Glycol (Miralax) 17 gm PO DAILYP PRN PRN Reason: Constipation Potassium Chloride (Klor-Con) 40 meq PO DAILYP PRN PRN Reason: K+ < 3.5 Senna/Docusate Sodium (Senna Plus Tablet) 1 tab PO HS [facility] Last Admin: 06/07/20 20:43 Dose: 1 tab Documented by: Sitagliptin Phosphate (Januvia) 50 mg PO DAILY [facility] Sodium Chloride (Saline Flush) 10 ml IV Q8 [facility] Last Admin: 06/08/20 05:45 Dose: Not Given Documented by: ABG Interpretation ABG results: 06/07/20 14:06 ABG Methemoglobin 0 L VBG pH 7.29 L VBG pCO2 41.2 VBG pO2 52 H VBG HCO3 19.5 L VBG Total CO2 20.8 L VBG O2 Saturation 82.8 H VBG Base Excess -6.6 L A/P Narrative A/P Narrative: * Bilateral pneumonia-clinical improvement noted on antibiotic coverage. Continue aspiration precaution. * Hypoxic respiratory failure secondary above. On 2 L oxygen. * Sepsis with leukocytosis-white count downtrending from 20.6->13.6. Continue management guidelines. * History of CKD stage III monitor renal function. Avoid nephrotoxins. Creatin ine at baseline * DM type II continue , refusing CC diet. On regular diet/sliding scale insulin/sitagliptin * History of hypertension-hold hypertensives until sepsis resolved. * History of CAD continue aspirin/Plavix/beta-sharon * DNR * Prophylaxis heparin Plan * Continue antibiotic coverage * Bronchodilators/supplemental oxygen * Pre-existing medical condition management home meds * Continue aspiration precautions * PT OT nutrition support * Discharge planning per case management Time Spent With Patient Time: Total time spent is greater than 50% in coordination of care (as documented) at patient's floor/unit and/or counseling patient: QUALITY VTE Deep Vein Thrombosis/Pulmonary Embolism Present on Admission: No
[2020-06-08] MEDS: MULTIVIT,THER IRON,CA,FA & MIN 1 TABLET PO SCH (09:20)
[2020-06-08] MEDS: sitaGLIPtin 50 MG TABLET PO SCH (09:20)
[2020-06-08] MEDS: DOCUSATE SODIUM 100 MG CAPSULE PO SCH ×2 (09:21→20:53)
[2020-06-08] MEDS: HEPARIN 5,000 UNIT/ML VIAL SQ SCH ×2 (09:22→20:52)
[2020-06-08] MEDS: cefTRIAXone 2 GM in DEXTROSE 5% IN WATER 50 ML IV SCH (10:20)
[2020-06-08] MEDS: SENNOSIDES/DOCUSATE SODIUM 1 TAB TABLET PO SCH (20:52)
[2020-06-09] MEDS: IPRATROPIUM/ALBUTEROL 3 ML AMPUL.NEB NEB SCH ×6 (02:59→22:49)
[2020-06-09] MEDS: 0.9 % SODIUM CHLORIDE 10 ML SYRINGE IV SCH ×3 (05:04→20:28)
[2020-06-09 06:34] LABS: Hematocrit 42.1 % (40.1-51.0); Hemoglobin 13.3 g/dL (13.7-17.5); Mean Corpuscular HGB Conc 31.6 g/dL (31.0-36.0); Mean Platelet Volume 10.2 fL (7.4-10.4); Platelet Count 182 K/mcL (140-440); RBC 4.34 M/mcL (4.63-6.08); Red Cell Distribution Width 14.2 % (11.5-14.5)
[2020-06-09 07:11] LABS: Bilirubin,Direct < 0.2 mg/dL (0.0-0.3); Chloride 104 mmol/L (96-108)
[2020-06-09 07:14] LABS: ALT/SGPT 25 U/l (0-40); AST/SGOT 19 U/l (0-37); Albumin 3.1 gm/dL (3.2-5.2); Albumin/Globulin Ratio 0.9 (1.0-2.3); Alkaline Phosphatase 129 U/L (39-117); Bilirubin,Total 0.2 mg/dL (0.0-1.0); Blood Urea Nitrogen 25 mg/dl (8-23); Calcium 9.5 mg/dl (8.6-10.4); Carbon Dioxide 19 mmol/L (22-30); Globulin 3.5 gm/dL (2.2-3.7); Glomerular Filtration Rate 39; Glucose 151 mg/dL (70-105); Lactate Dehydrogenase 168 U/L (94-250); Phosphorous 3.1 mg/dL (2.7-4.5); Triglycerides 214 mg/dl (<150)
[2020-06-09 07:37] LABS: Band Neutrophils % 1 % (0-10); Eosinophils % (Manual) 5 % (0-7); Lymphocytes % 3 % (15-49); Monocytes % (Manual) 8 % (1-12); Platelet Estimate NORMAL (NORMAL); RBC Morphology NORMAL (NORMAL); Segmented Neutrophils % 83 % (38-78)
[2020-06-09] MEDS ORDERED: ACETAMINOPHEN 500 MG TABLET PO PRN (07:45)
[2020-06-09] MEDS ORDERED: NITROGLYCERIN 0.4 MG TAB.SUBL SL PRN (08:12)
[2020-06-09] MEDS: INSULIN LISPRO 1 UNIT/0.01 ML UNIT SQ SCH ×4 (08:27→20:26)
[2020-06-09] MEDS: metFORMIN 500 MG TABLET PO SCH (08:28)
[2020-06-09] MEDS: cefTRIAXone 2 GM in DEXTROSE 5% IN WATER 50 ML IV SCH (08:28)
[2020-06-09] MEDS: FERROUS SULFATE 325 MG TABLET PO SCH (08:28)
--- NOTE | 2020-06-09 08:43 | Internal Med Progress Note ---
SUBJECTIVE Subjective Patient information: Note initiated : 06/09/20 at 8:02 am Service Date, if different from initiated Date: [] Patient: Alex Boucher 85 y/o M admitted on 06/07/20 for shortness of breath. Mr. Boucher is a 85 year old M who resides at home along with his daughter with medical history of CKD stage III/CAD/HTN/HLD/DM type II , presented to the ER with 24-hour onset of worsening shortness of breath. Symptoms started roughly 3 days ago with increasing cough productive white sputum. No associated orthopnea or PND. He denies sick contacts or associated fever chills or body aches. This morning he could barely catch her breath and subsequently presents to the ER. Initial work-up was consistent with bibasilar pneumonia. White count over 20,000. Blood cultures were drawn and antibiotics initiated subsequently hospitalist service was consulted. At the time evaluation patient is fatigued lethargic and short of breath. he was able to answer most the question and endorse history as above. Denies recent hospitalization for pneumonia or exposure to healthcare facility. Also denies changes in medication, weight gain, diarrhea but endorses loss of appetite and progressive weakness and fatigue 06/08-patient doing well. Improved shortness of breath. White count down to 13,000. No overnight fever chills. Persistent tachypnea. Refused diabetic diet, wants regular diet. Improving sepsis. 06/09-patient doing well. Improved white count. Improved shortness of breath. No overnight fever chills. White count down to 11,000. On 2 L oxygen. Tachycardia improved. Anticipate discharge to SNF on Thursday. Continue antibiotic coverage. Constitutional Vitals: Vital Signs Temp Pulse Resp BP Pulse Ox 98.2 F 101 H 22 130/70 95 06/09/20 07:54 06/09/20 07:54 06/09/20 07:54 06/09/20 07:54 06/09/20 07:54 Period Temp Pulse Resp BP Sys/Branch Pulse Ox Last 24 Hr 98.2 F-99.1 F 95-112 18-24 111-146/63-74 92-98 Intake and Output 06/08/20 06/09/20 06/09/20 21:59 05:59 13:59 Intake Total 660 320 240 Output Total 650 450 Balance 10 -130 240 Weight 85.729 kg alert Nonlabored breathing Frequent productive cough Diminished breath sounds bases No lymphedema Intake & Output: Intake & Output 06/08/20 06/09/20 06/09/20 21:59 05:59 13:59 Intake Total 660 320 240 Output Total 650 450 Balance 10 -130 240 Weight 85.729 kg Intake: Oral 660 320 240 Output: Void Amount 650 450 Other: Meal Dinner Breakfast Percent of Meal Consumed 75% 75% Urine Appearance Clear Urine Color Bright Yellow Stool Color Brown Stool Consistency Normal for Patient Formed # Bowel Movements 1 OBJ DATA Labs CBC & Chem 7: 06/09/20 04:46 06/09/20 04:46 Labs: Abnormal Lab Results 06/09/20 06/09/20 06/08/20 04:46 04:46 04:52 WBC RBC 4.34 L Hgb 13.3 L Gran % Lymph % (Auto) Gran # Lymph # (Auto) [place] # (Auto) Seg Neutrophils % 83 H Lymphocytes % 3 L D-Dimer ABG Methemoglobin VBG pH VBG pO2 VBG HCO3 VBG Total CO2 VBG O2 Saturation VBG Base Excess Carboxyhemoglobin Carbon Dioxide 19 L 19 L BUN 25 H Creatinine 1.6 H 1.6 H Glucose 151 H 130 H AST ALT Alkaline Phosphatase 129 H 132 H Albumin 3.1 L Albumin/Globulin Ratio 0.9 L Triglycerides 214 H 157 H 06/08/20 06/07/20 06/07/20 04:52 14:06 12:37 WBC 13.3 H RBC 4.52 L Hgb Gran % Lymph % (Auto) Gran # Lymph # (Auto) [place] # (Auto) Seg Neutrophils % 89 H Lymphocytes % 2 L D-Dimer 1.00 H ABG Methemoglobin 0 L VBG pH 7.29 L VBG pO2 52 H VBG HCO3 19.5 L VBG Total CO2 20.8 L VBG O2 Saturation 82.8 H VBG Base Excess -6.6 L Carboxyhemoglobin 5.2 H Carbon Dioxide BUN Creatinine Glucose AST ALT Alkaline Phosphatase Albumin Albumin/Globulin Ratio Triglycerides 06/07/20 06/07/20 12:34 12:33 WBC 20.8 H RBC Hgb Gran % 90.8 H Lymph % (Auto) 3.5 L Gran # 18.91 H Lymph # (Auto) 0.72 L [place] # (Auto) 0.96 H Seg Neutrophils % Lymphocytes % D-Dimer ABG Methemoglobin VBG pH VBG pO2 VBG HCO3 VBG Total CO2 VBG O2 Saturation VBG Base Excess Carboxyhemoglobin Carbon Dioxide 17 L BUN Creatinine 1.5 H Glucose 114 H AST 38 H ALT 48 H Alkaline Phosphatase 155 H Albumin Albumin/Globulin Ratio Triglycerides Meds: Medications Acetaminophen (Tylenol) 650 mg PO Q4-6HP PRN; Protocol PRN Reason: Per Pain Protocol/Fever > 101 Albuterol/Ipratropium (Duoneb) 3 ml NEB Q4HRT [facility] Last Admin: 06/09/20 07:18 Dose: 3 ml Documented by: Aspirin (Ecotrin) 325 mg PO DAILY [facility] Atorvastatin Calcium (Lipitor) 40 mg PO QHS [facility] Bisacodyl (Dulcolax) 10 mg IN Q2-3DAYS PRN PRN Reason: Constipation Bisacodyl (Dulcolax) 10 mg PO QDAY [facility] Clopidogrel Bisulfate (Plavix) 75 mg PO QDAY [facility] Dextrose (Dextrose 50%) 0 ml IV UD PRN PRN Reason: Hypoglycemia Diagnostic Test (Pha) (Accu-Chek) 1 each FS ACHS [facility] Last Admin: 06/09/20 07:35 Dose: 1 each Documented by: Docusate Sodium (Colace) 100 mg PO BID [facility] Last Admin: 06/08/20 20:53 Dose: Not Given Documented by: [facility]ous [facility]) [facility] Last Admin: 06/09/20 08:28 Dose: 325 mg Documented by: Glucose (Insta-Glucose) 15 gm PO PRN PRN PRN Reason: Hypoglycemia Guaifenesin (Mucinex) 1,200 mg PO BID [facility] Heparin Sodium (Porcine) (Heparin) 5,000 unit SQ Q12 [facility] Last Admin: 06/08/20 20:52 Dose: 5,000 unit Documented by: Hydralazine HCl (Apresoline) 10 mg IV Q4-6HP PRN PRN Reason: Hypertension Hydrochlorothiazide (Oretic) 12.5 mg PO BID [facility] Ceftriaxone Sodium 2 gm/ (Dextrose) 50 mls @ 100 mls/hr IV DAILY [facility]; Protocol Last Admin: 06/09/20 08:28 Dose: 100 mls/hr Documented by: Magnesium Sulfate (Magnesium Sulfate) 2 gm in 50 mls @ 50 mls/hr IV UD PRN PRN Reason: MG = or < 1.7 Levofloxacin (Levaquin) 750 mg in 150 mls @ 100 mls/hr IV Q48H [facility]; Protocol Last Infusion: 06/07/20 18:18 Dose: Infused Documented by: Insulin Human Lispro (Humalog) 0 unit SQ ACHS [facility]; Protocol Last Admin: 06/09/20 08:27 Dose: 1 unit Documented by: Iron Carb/Multivit/Instrumentation And Controls Designer/Folic Acid (Multivitamin W/Minerals) 1 tab PO DAILY [facility] Last Admin: 06/08/20 09:20 Dose: 1 tab Documented by: Iron Carb/Multivit/Instrumentation And Controls Designer/Folic Acid (Multivitamin W/Minerals) 1 tab PO DAILY [facility] Magnesium Oxide (Magnesium Oxide) 400 mg PO DAILY [facility] Melatonin (Melatonin 3mg Tablet) 3 mg PO HSP PRN PRN Reason: Insomnia Metformin HCl (Glucophage) 250 mg PO QAMCC [facility] Last Admin: 06/09/20 08:28 Dose: 250 mg Documented by: Metoprolol Succinate (Toprol Xl) 50 mg PO BID [facility] Nitroglycerin (Nitrostat) 0.4 mg SL Q5M PRN PRN Reason: Chest Pain Ondansetron HCl (Zofran Odt) 4 mg SL Q4-6HP PRN; Protocol PRN Reason: Nausea And Vomiting Ondansetron HCl (Zofran) 4 mg IV Q4-6HP PRN; Protocol PRN Reason: Nausea And Vomiting Clindamycin Phosphate Topical Cream 1 dose TOPICAL BID [facility] Empagliflozin [ (Jardiance] 10 Mg Tab) 1 dose PO QDAY [facility] Vitamins A,C,E-Zinc -Copper [ Preservision Areds] Cap 1 dose PO BID [facility] Polyethylene Glycol (Miralax) 17 gm PO DAILYP PRN PRN Reason: Constipation Potassium Chloride (Klor-Con) 40 meq PO DAILYP PRN PRN Reason: K+ < 3.5 Senna/Docusate Sodium (Senna Plus Tablet) 1 tab PO HS [facility] Last Admin: 06/08/20 20:52 Dose: 1 tab Documented by: Sitagliptin Phosphate (Januvia) 50 mg PO DAILY [facility] Last Admin: 06/08/20 09:20 Dose: 50 mg Documented by: Sodium Chloride (Saline Flush) 10 ml IV Q8 [facility] Last Admin: 06/09/20 05:04 Dose: 10 ml Documented by: ABG Interpretation ABG results: 06/07/20 14:06 ABG Methemoglobin 0 L VBG pH 7.29 L VBG pCO2 41.2 VBG pO2 52 H VBG HCO3 19.5 L VBG Total CO2 20.8 L VBG O2 Saturation 82.8 H VBG Base Excess -6.6 L A/P Narrative A/P Narrative: * Bilateral pneumonia-clinical improvement noted on antibiotic coverage. Continue aspiration precaution. * Hypoxic respiratory failure secondary above. Clinically improving. On supplemental oxygen and weaning as tolerated. * Sepsis with leukocytosis-white count downtrending from 20.6->13.6->11. Improved endorgan dysfunction * History of CKD stage III monitor renal function. Avoid nephrotoxins. Creatinine at baseline 1.6 * DM type II continue , refusing CC diet. Continue regular diet/sliding scale insulin/sitagliptin. Blood sugars improving around 140s * History of hypertension-hold hypertensives until sepsis resolved. * History of CAD continue aspirin/Plavix/beta-sharon * DNR * Prophylaxis heparin Plan * Continue antibiotic coverage * Bronchodilators/supplemental oxygen * Pre-existing medical condition management home meds * Continue aspiration precautions * PT OT nutrition support * Discharge planning per case management likely Thursday to Time Spent With Patient Time: Total time spent is greater than 50% in coordination of care (as documented) at patient's floor/unit and/or counseling patient: QUALITY VTE Deep Vein Thrombosis/Pulmonary Embolism Present on Admission: No
--- NOTE | 2020-06-09 09:41 | XRay Report ---
INDICATION: Interval Change TECHNIQUE: AP portable chest x-ray COMPARISON: Previous chest x-ray dated 06/07/2020. Previous chest CT scan dated 06/07/2020 01/11/2020 FINDINGS:Mild bibasilar pulmonary parenchymal or pleural based density. Findings are essentially unchanged. No new parenchymal infiltrates. Heart size and vascularity within normal limits. No pulmonary edema or pulmonary congestion. Lungs:Lungs are negative. No focal pulmonary parenchymal infiltrate or mass Heart, vascular:No significant cardiomegaly. Pulmonary vascularity is normal. No pulmonary edema or pulmonary congestion Mediastinum, dianne:No mediastinal widening. No hilar mass Pleura:CT scan demonstrates calcified and noncalcified pleural plaques and pleural-based masses. Skeletal:Negative. IMPRESSION: 1. No acute abnormality. 2. No interval change since 06/07/2020 Interpreted and Authenticated by: Luis Juares 06/09/20
[2020-06-09] MEDS: MULTIVIT,THER IRON,CA,FA & MIN 1 TABLET PO SCH ×2 (10:00→10:03)
[2020-06-09] MEDS: CLOPIDOGREL 75 MG TABLET PO SCH (10:03)
[2020-06-09] MEDS: guaiFENesin 600 MG TAB.SR.12H PO SCH ×2 (10:03→20:27)
[2020-06-09] MEDS: HYDROCHLOROTHIAZIDE 12.5 MG CAPSULE PO SCH ×2 (10:03→20:27)
[2020-06-09] MEDS: DOCUSATE SODIUM 100 MG CAPSULE PO SCH ×2 (10:03→20:27)
[2020-06-09] MEDS: MAGNESIUM OXIDE 400 MG TABLET PO SCH (10:03)
[2020-06-09] MEDS: METOPROLOL SUCCINATE 50 MG TAB.XL.24H PO SCH ×2 (10:03→20:27)
[2020-06-09] MEDS: BISACODYL 5 MG TABLET PO SCH (10:03)
[2020-06-09] MEDS: ASPIRIN 325 MG ENTERIC COATED TABLET PO SCH (10:04)
[2020-06-09] MEDS: LEVOFLOXACIN 750 MG/150 ML BAG IV SCH (10:04)
[2020-06-09] MEDS: sitaGLIPtin 50 MG TABLET PO SCH (10:04)
[2020-06-09] MEDS: HEPARIN 5,000 UNIT/ML VIAL SQ SCH ×2 (10:04→20:26)
[2020-06-09] MEDS: CLINDAMYCIN PHOSPHATE TOPICAL SCH ×2 (10:22→20:27)
[2020-06-09] MEDS: VITAMINS A C E ZINC COPPER PO SCH ×2 (12:18→20:28)
--- NOTE | 2020-06-09 13:42 | Internal Med Progress Note ---
SUBJECTIVE Subjective Patient information: Note initiated : 06/09/20 at 1:36 pm Service Date, if different from initiated Date: [] Patient: Alex Boucher a 85 y/o M admitted on 06/07/20 for shortness of breath. Chief Complaint: [] Interval history: Mr. Boucher is a 85 year old M who resides at home along with his daughter with medical history of CKD stage III/CAD/HTN/HLD/DM type II , presented to the ER with 24-hour onset of worsening shortness of breath. Symptoms started roughly 3 days ago with increasing cough productive white sputum. No associated orthopnea or PND. He denies sick contacts or associated fever chills or body aches. This morning he could barely catch her breath and subsequently presents to the ER. Initial work-up was consistent with bibasilar pneumonia. White count over 20,000. Blood cultures were drawn and antibiotics initiated subsequently hospitalist service was consulted. At the time evaluation patient is fatigued lethargic and short of breath. he was able to answer most the question and endorse history as above. Denies recent hospitalization for pneumonia or exposure to healthcare facility. Also denies changes in medication, weight gain, diarrhea but endorses loss of appetite and progressive weakness and fatigue 06/08-patient doing well. Improved shortness of breath. White count down to 13,000. No overnight fever chills. Persistent tachypnea. Refused diabetic diet, wants regular diet. Improving sepsis. 06/09-patient doing well. Improved white count. Improved shortness of breath. No overnight fever chills. White count down to 11,000. On 2 L oxygen. Tachycardia improved. Anticipate discharge to SNF on Thursday. Continue antibiotic coverage. 06/10 Constitutional Vitals: Vital Signs Temp Pulse Resp BP Pulse Ox 98.3 F 106 H 24 H 120/70 94 06/09/20 12:00 06/09/20 12:00 06/09/20 12:00 06/09/20 12:00 06/09/20 12:00 Period Temp Pulse Resp BP Sys/Branch Pulse Ox Last 24 Hr 98.2 F-99.1 F 95-111 18-24 120-146/69-74 94-98 Intake and Output 06/08/20 06/09/20 06/09/20 21:59 05:59 13:59 Intake Total 660 320 720 Output Total 650 450 Balance 10 -130 720 Weight 85.729 kg Intake & Output: Intake & Output 06/08/20 06/09/20 06/09/20 21:59 05:59 13:59 Intake Total 660 320 720 Output Total 650 450 Balance 10 -130 720 Weight 85.729 kg Intake: Oral 660 320 720 Output: Void Amount 650 450 Other: Meal Dinner Lunch Percent of Meal Consumed 75% 50% Feeding Ability Independent Urine Appearance Clear Urine Color Bright Yellow Stool Color Brown Stool Consistency Normal for Patient Formed # Bowel Movements 1 Exam: General: Alert, Awake, No acute Distress Eyes/N/T: EOMI, Head/Neck: neck supple, CV: RRR, No murmurs, normal s1/s2 Pulm: diminished b/l, no wheezing Abd: soft, nontender, +BS x4 Ext: no clubbing/cyanosis/edema Neuro: Alert, no focal deficits, moves all extremities, Skin: warm/dry OBJ DATA Labs CBC & Chem 7: 06/09/20 04:46 06/09/20 04:46 Labs: Abnormal Lab Results 06/09/20 06/09/20 06/08/20 04:46 04:46 04:52 WBC RBC 4.34 L Hgb 13.3 L Gran % Lymph % (Auto) Gran # Lymph # (Auto) [place] # (Auto) Seg Neutrophils % 83 H Lymphocytes % 3 L D-Dimer ABG Methemoglobin VBG pH VBG pO2 VBG HCO3 VBG Total CO2 VBG O2 Saturation VBG Base Excess Carboxyhemoglobin Carbon Dioxide 19 L 19 L BUN 25 H Creatinine 1.6 H 1.6 H Glucose 151 H 130 H AST ALT Alkaline Phosphatase 129 H 132 H Albumin 3.1 L Albumin/Globulin Ratio 0.9 L Triglycerides 214 H 157 H 06/08/20 06/07/20 06/07/20 04:52 14:06 12:37 WBC 13.3 H RBC 4.52 L Hgb Gran % Lymph % (Auto) Gran # Lymph # (Auto) [place] # (Auto) Seg Neutrophils % 89 H Lymphocytes % 2 L D-Dimer 1.00 H ABG Methemoglobin 0 L VBG pH 7.29 L VBG pO2 52 H VBG HCO3 19.5 L VBG Total CO2 20.8 L VBG O2 Saturation 82.8 H VBG Base Excess -6.6 L Carboxyhemoglobin 5.2 H Carbon Dioxide BUN Creatinine Glucose AST ALT Alkaline Phosphatase Albumin Albumin/Globulin Ratio Triglycerides 06/07/20 06/07/20 12:34 12:33 WBC 20.8 H RBC Hgb Gran % 90.8 H Lymph % (Auto) 3.5 L Gran # 18.91 H Lymph # (Auto) 0.72 L [place] # (Auto) 0.96 H Seg Neutrophils % Lymphocytes % D-Dimer ABG Methemoglobin VBG pH VBG pO2 VBG HCO3 VBG Total CO2 VBG O2 Saturation VBG Base Excess Carboxyhemoglobin Carbon Dioxide 17 L BUN Creatinine 1.5 H Glucose 114 H AST 38 H ALT 48 H Alkaline Phosphatase 155 H Albumin Albumin/Globulin Ratio Triglycerides Meds: Medications Acetaminophen (Tylenol) 650 mg PO Q4-6HP PRN; Protocol PRN Reason: Per Pain Protocol/Fever > 101 Last Admin: 06/09/20 10:03 Dose: 650 mg Documented by: Albuterol/Ipratropium (Duoneb) 3 ml NEB Q4HRT [facility] Last Admin: 06/09/20 11:15 Dose: 3 ml Documented by: Aspirin (Ecotrin) 325 mg PO DAILY [facility] Last Admin: 06/09/20 10:04 Dose: 325 mg Documented by: Atorvastatin Calcium (Lipitor) 40 mg PO QHS [facility] Bisacodyl (Dulcolax) 10 mg NC Q2-3DAYS PRN PRN Reason: Constipation Bisacodyl (Dulcolax) 10 mg PO QDAY [facility] Last Admin: 06/09/20 10:03 Dose: 10 mg Documented by: Clopidogrel Bisulfate (Plavix) 75 mg PO QDAY [facility] Last Admin: 06/09/20 10:03 Dose: 75 mg Documented by: Dextrose (Dextrose 50%) 0 ml IV UD PRN PRN Reason: Hypoglycemia Diagnostic Test (Pha) (Accu-Chek) 1 each FS ACHS [facility] Last Admin: 06/09/20 12:19 Dose: 1 each Documented by: Docusate Sodium (Colace) 100 mg PO BID [facility] Last Admin: 06/09/20 10:03 Dose: 100 mg Documented by: Ferrous Sulfate (Ferrous Sulfate) 325 mg PO QAMCC [facility] Last Admin: 06/09/20 08:28 Dose: 325 mg Documented by: Glucose (Insta-Glucose) 15 gm PO PRN PRN PRN Reason: Hypoglycemia Guaifenesin (Mucinex) 1,200 mg PO BID [facility] Last Admin: 06/09/20 10:03 Dose: 1,200 mg Documented by: Heparin Sodium (Porcine) (Heparin) 5,000 unit SQ Q12 [facility] Last Admin: 06/09/20 10:04 Dose: 5,000 unit Documented by: Hydralazine HCl (Apresoline) 10 mg IV Q4-6HP PRN PRN Reason: Hypertension Hydrochlorothiazide (Oretic) 12.5 mg PO BID [facility] Last Admin: 06/09/20 10:03 Dose: 12.5 mg Documented by: Ceftriaxone Sodium 2 gm/ (Dextrose) 50 mls @ 100 mls/hr IV DAILY [facility]; Protocol Last Admin: 06/09/20 08:28 Dose: 100 mls/hr Documented by: Magnesium Sulfate (Magnesium Sulfate) 2 gm in 50 mls @ 50 mls/hr IV UD PRN PRN Reason: MG = or < 1.7 Levofloxacin (Levaquin) 750 mg in 150 mls @ 100 mls/hr IV Q48H [facility]; Protocol Last Admin: 06/09/20 10:04 Dose: 100 mls/hr Documented by: Insulin Human Lispro (Humalog) 0 unit SQ ACHS [facility]; Protocol Last Admin: 06/09/20 12:19 Dose: 1 unit Documented by: Iron Carb/Multivit/Merchandise Adjustment Clerk/Folic Acid (Multivitamin W/Minerals) 1 tab PO DAILY [facility] Last Admin: 06/09/20 10:03 Dose: 1 tab Documented by: Iron Carb/Multivit/[place]/Folic Acid (Multivitamin W/Minerals) 1 tab PO DAILY [facility] Last Admin: 06/09/20 10:00 Dose: Not Given Documented by: Magnesium Oxide (Magnesium Oxide) 400 mg PO DAILY [facility] Last Admin: 06/09/20 10:03 Dose: 400 mg Documented by: Melatonin (Melatonin 3mg Tablet) 3 mg PO HSP PRN PRN Reason: Insomnia Metformin HCl (Glucophage) 250 mg PO [facility] Last Admin: 06/09/20 08:28 Dose: 250 mg Documented by: Metoprolol Succinate (Toprol Xl) 50 mg PO BID [facility] Last Admin: 06/09/20 10:03 Dose: 50 mg Documented by: Nitroglycerin (Nitrostat) 0.4 mg SL Q5M PRN PRN Reason: Chest Pain Ondansetron HCl (Zofran Odt) 4 mg SL Q4-6HP PRN; Protocol PRN Reason: Nausea And Vomiting Ondansetron HCl (Zofran) 4 mg IV Q4-6HP PRN; Protocol PRN Reason: Nausea And Vomiting Clindamycin Phosphate Topical Cream 1 dose TOPICAL BID [facility] Last Admin: 06/09/20 10:22 Dose: Not Given Documented by: Empagliflozin [ (Jardiance] 10 Mg Tab) 1 dose PO QDAY [facility] Last Admin: 06/09/20 12:18 Dose: Not Given Documented by: Vitamins A,C,E-Zinc -Copper [ Preservision Areds] Cap 1 dose PO BID [facility] Last Admin: 06/09/20 12:18 Dose: Not Given Documented by: Polyethylene Glycol (Miralax) 17 gm PO DAILYP PRN PRN Reason: Constipation Potassium Chloride (Klor-Con) 40 meq PO DAILYP PRN PRN Reason: K+ < 3.5 Senna/Docusate Sodium (Senna Plus Tablet) 1 tab PO HS [facility] Last Admin: 06/08/20 20:52 Dose: 1 tab Documented by: Sitagliptin Phosphate (Januvia) 50 mg PO DAILY [facility] Last Admin: 06/09/20 10:04 Dose: 50 mg Documented by: Sodium Chloride (Saline Flush) 10 ml IV Q8 [facility] Last Admin: 06/09/20 12:19 Dose: 10 ml Documented by: ABG Interpretation ABG results: 06/07/20 14:06 ABG Methemoglobin 0 L VBG pH 7.29 L VBG pCO2 41.2 VBG pO2 52 H VBG HCO3 19.5 L VBG Total CO2 20.8 L VBG O2 Saturation 82.8 H VBG Base Excess -6.6 L A/P Narrative A/P Narrative: A: *b/l PNA: clinical improvement noted on antibiotic coverage -Covid Neg *Acute Hypoxic respiratory failure: 2/2 above. Clinically improving -On supplemental oxygen and weaning as tolerated. *Sepsis w/leukocytosis: -white count downtrending from 20.6->13.6->11. Improved endorgan dysfunction *CKD III: Creatinine at baseline 1.6 *DM type II: *HTN: *h/o CAD: on aspirin/Plavix/beta-sharon Plan: -Continue antibiotic coverage -Bronchodilators/supplemental oxygen -Continue aspiration precautions -refusing CC diet. Continue regular diet/sliding scale insulin/sitagliptin. Blood sugars improving around 140s -hold hypertensives until sepsis resolved. -PT OT nutrition support -Discharge planning per case management likely Thursday to SNF -ppx: heparin DNR Time Spent With Patient Time: Total time spent is greater than 50% in coordination of care (as documented) at patient's floor/unit and/or counseling patient: QUALITY VTE Deep Vein Thrombosis/Pulmonary Embolism Present on Admission: No
[2020-06-09] MEDS: SENNOSIDES/DOCUSATE SODIUM 1 TAB TABLET PO SCH (20:27)
[2020-06-09] MEDS ORDERED: ATORVASTATIN 20 MG TABLET PO SCH (21:00)
[2020-06-10] MEDS: IPRATROPIUM/ALBUTEROL 3 ML AMPUL.NEB NEB SCH ×2 (02:42→06:44)
[2020-06-10] MEDS: 0.9 % SODIUM CHLORIDE 10 ML SYRINGE IV SCH ×2 (04:28→12:07)
[2020-06-10 06:32] LABS: Hematocrit 41.9 % (40.1-51.0); Hemoglobin 13.3 g/dL (13.7-17.5); Mean Corpuscular HGB Conc 31.7 g/dL (31.0-36.0); Mean Platelet Volume 10.3 fL (7.4-10.4); Platelet Count 187 K/mcL (140-440); RBC 4.32 M/mcL (4.63-6.08); Red Cell Distribution Width 14.3 % (11.5-14.5)
[2020-06-10] MEDS: INSULIN LISPRO 1 UNIT/0.01 ML UNIT SQ SCH ×2 (06:55→11:40)
[2020-06-10 07:11] LABS: Bilirubin,Direct < 0.2 mg/dL (0.0-0.3); Chloride 105 mmol/L (96-108)
[2020-06-10 07:12] LABS: ALT/SGPT 30 U/l (0-40); AST/SGOT 33 U/l (0-37); Albumin 3.2 gm/dL (3.2-5.2); Albumin/Globulin Ratio 0.8 (1.0-2.3); Alkaline Phosphatase 142 U/L (39-117); Bilirubin,Total 0.2 mg/dL (0.0-1.0); Blood Urea Nitrogen 23 mg/dl (8-23); Calcium 10.2 mg/dl (8.6-10.4); Carbon Dioxide 19 mmol/L (22-30); Globulin 3.8 gm/dL (2.2-3.7); Glomerular Filtration Rate 39; Glucose 127 mg/dL (70-105); Lactate Dehydrogenase 287 U/L (94-250); Phosphorous 2.8 mg/dL (2.7-4.5); Triglycerides 142 mg/dl (<150); Uric Acid 6.5 mg/dL (2.5-8.0)
--- NOTE | 2020-06-10 07:42 | Internal Med Progress Note ---
SUBJECTIVE Subjective Patient information: Note initiated : 06/10/20 at 7:40 am Service Date, if different from initiated Date: [] Patient: Alex Boucher a 85 y/o M admitted on 06/07/20 for shortness of breath. Chief Complaint: [] Interval history: Mr. Boucher is a 85 year old M who resides at home along with his daughter with medical history of CKD stage III/CAD/HTN/HLD/DM type II , presented to the ER with 24-hour onset of worsening shortness of breath. Symptoms started roughly 3 days ago with increasing cough productive white sputum. No associated orthopnea or PND. He denies sick contacts or associated fever chills or body aches. This morning he could barely catch her breath and subsequently presents to the ER. Initial work-up was consistent with bibasilar pneumonia. White count over 20,000. Blood cultures were drawn and antibiotics initiated subsequently hospitalist service was consulted. At the time evaluation patient is fatigued lethargic and short of breath. he was able to answer most the question and endorse history as above. Denies recent hospitalization for pneumonia or exposure to healthcare facility. Also denies changes in medication, weight gain, diarrhea but endorses loss of appetite and progressive weakness and fatigue 06/08-patient doing well. Improved shortness of breath. White count down to 13,000. No overnight fever chills. Persistent tachypnea. Refused diabetic diet, wants regular diet. Improving sepsis. 06/09-patient doing well. Improved white count. Improved shortness of breath. No overnight fever chills. White count down to 11,000. On 2 L oxygen. Tachycardia improved. Anticipate discharge to SNF on Thursday. Continue antibiotic coverage. 06/10 Patient doing well. On room air. Ambulating the halls. Cough and shortness of breath at baseline per patient. Review of Systems: denies headache/fever/chills/nausea/vomiting/chest or abdominal pain/cough/dyspnea/diarrhea. Otherwise see above. Constitutional Vitals: Vital Signs Temp Pulse Resp BP Pulse Ox 98.4 F 94 H 16 105/59 92 06/10/20 06:51 06/10/20 06:54 06/10/20 06:54 06/10/20 06:51 06/10/20 06:51 Period Temp Pulse Resp BP Sys/Branch Pulse Ox Last 24 Hr 98.2 F-98.7 F 94-108 16-36 105-130/59-71 91-95 Intake and Output 06/09/20 06/10/20 06/10/20 21:59 05:59 13:59 Intake Total 480 220 Output Total 1325 300 Balance -845 -80 Weight 85.984 kg Intake & Output: Intake & Output 06/09/20 06/10/20 06/10/20 21:59 05:59 13:59 Intake Total 480 220 Output Total 1325 300 Balance -845 -80 Weight 85.984 kg Intake: Oral 480 220 Output: Urine Catheter Amount 575 Void Amount 750 300 Other: Meal Dinner Percent of Meal Consumed 25% Urine Appearance Sediment Urine Color Pale Exam: General: Alert, Awake, No acute Distress Eyes/N/T: EOMI, Head/Neck: neck supple, CV: mildly tachy, No murmurs, normal s1/s2 Pulm: diminished b/l, no wheezing Abd: soft, nontender, +BS x4 Ext: no clubbing/cyanosis/edema Neuro: Alert, no focal deficits, moves all extremities, Skin: warm/dry OBJ DATA Labs CBC & Chem 7: 06/10/20 05:08 06/10/20 05:08 Labs: Abnormal Lab Results 06/10/20 06/10/20 06/09/20 05:08 05:08 04:46 WBC RBC 4.32 L Hgb 13.3 L Gran % Lymph % (Auto) Gran # Lymph # (Auto) [place] # (Auto) Seg Neutrophils % Lymphocytes % D-Dimer ABG Methemoglobin VBG pH VBG pO2 VBG HCO3 VBG Total CO2 VBG O2 Saturation VBG Base Excess Carboxyhemoglobin Carbon Dioxide 19 L 19 L BUN 25 H Creatinine 1.6 H 1.6 H Glucose 127 H 151 H AST ALT Alkaline Phosphatase 142 H 129 H Lactate Dehydrogenase 287 H Albumin 3.1 L Globulin 3.8 H Albumin/Globulin Ratio 0.8 L 0.9 L Triglycerides 214 H 06/09/20 06/08/20 06/08/20 04:46 04:52 04:52 WBC 13.3 H RBC 4.34 L 4.52 L Hgb 13.3 L Gran % Lymph % (Auto) Gran # Lymph # (Auto) [place] # (Auto) Seg Neutrophils % 83 H 89 H Lymphocytes % 3 L 2 L D-Dimer ABG Methemoglobin VBG pH VBG pO2 VBG HCO3 VBG Total CO2 VBG O2 Saturation VBG Base Excess Carboxyhemoglobin Carbon Dioxide 19 L BUN Creatinine 1.6 H Glucose 130 H AST ALT Alkaline Phosphatase 132 H Lactate Dehydrogenase Albumin Globulin Albumin/Globulin Ratio Triglycerides 157 H 06/07/20 06/07/20 06/07/20 14:06 12:37 12:34 WBC 20.8 H RBC Hgb Gran % 90.8 H Lymph % (Auto) 3.5 L Gran # 18.91 H Lymph # (Auto) 0.72 L [place] # (Auto) 0.96 H Seg Neutrophils % Lymphocytes % D-Dimer 1.00 H ABG Methemoglobin 0 L VBG pH 7.29 L VBG pO2 52 H VBG HCO3 19.5 L VBG Total CO2 20.8 L VBG O2 Saturation 82.8 H VBG Base Excess -6.6 L Carboxyhemoglobin 5.2 H Carbon Dioxide BUN Creatinine Glucose AST ALT Alkaline Phosphatase Lactate Dehydrogenase Albumin Globulin Albumin/Globulin Ratio Triglycerides 06/07/20 12:33 WBC RBC Hgb Gran % Lymph % (Auto) Gran # Lymph # (Auto) [place] # (Auto) Seg Neutrophils % Lymphocytes % D-Dimer ABG Methemoglobin VBG pH VBG pO2 VBG HCO3 VBG Total CO2 VBG O2 Saturation VBG Base Excess Carboxyhemoglobin Carbon Dioxide 17 L BUN Creatinine 1.5 H Glucose 114 H AST 38 H ALT 48 H Alkaline Phosphatase 155 H Lactate Dehydrogenase Albumin Globulin Albumin/Globulin Ratio Triglycerides Meds: Medications Acetaminophen (Tylenol) 650 mg PO Q4-6HP PRN; Protocol PRN Reason: Per Pain Protocol/Fever > 101 Last Admin: 06/09/20 10:03 Dose: 650 mg Documented by: Albuterol/Ipratropium (Duoneb) 3 ml NEB Q4HRT [facility] Last Admin: 06/10/20 06:44 Dose: 3 ml Documented by: Aspirin (Ecotrin) 325 mg PO DAILY [facility] Last Admin: 06/09/20 10:04 Dose: 325 mg Documented by: Atorvastatin Calcium (Lipitor) 40 mg PO QHS [facility] Last Admin: 06/09/20 20:27 Dose: 40 mg Documented by: Bisacodyl (Dulcolax) 10 mg VA Q2-3DAYS PRN PRN Reason: Constipation Bisacodyl (Dulcolax) 10 mg PO QDAY [facility] Last Admin: 06/09/20 10:03 Dose: 10 mg Documented by: Clopidogrel Bisulfate (Plavix) 75 mg PO QDAY [facility] Last Admin: 06/09/20 10:03 Dose: 75 mg Documented by: Dextrose (Dextrose 50%) 0 ml IV UD PRN PRN Reason: Hypoglycemia Diagnostic Test (Pha) (Accu-Chek) 1 each FS ACHS [facility] Last Admin: 06/10/20 06:55 Dose: 1 each Documented by: Docusate Sodium (Colace) 100 mg PO BID [facility] Last Admin: 06/09/20 20:27 Dose: 100 mg Documented by: Ferrous Sulfate (Ferrous Sulfate) 325 mg PO [facility] Last Admin: 06/09/20 08:28 Dose: 325 mg Documented by: Glucose (Insta-Glucose) 15 gm PO PRN PRN PRN Reason: Hypoglycemia Guaifenesin (Mucinex) 1,200 mg PO BID [facility] Last Admin: 06/09/20 20:27 Dose: 1,200 mg Documented by: Heparin Sodium (Porcine) (Heparin) 5,000 unit SQ Q12 [facility] Last Admin: 06/09/20 20:26 Dose: 5,000 unit Documented by: Hydralazine HCl (Apresoline) 10 mg IV Q4-6HP PRN PRN Reason: Hypertension Hydrochlorothiazide (Oretic) 12.5 mg PO BID [facility] Last Admin: 06/09/20 20:27 Dose: 12.5 mg Documented by: Ceftriaxone Sodium 2 gm/ (Dextrose) 50 mls @ 100 mls/hr IV DAILY [facility]; Protocol Last Infusion: 06/09/20 09:00 Dose: Infused Documented by: Magnesium Sulfate (Magnesium Sulfate) 2 gm in 50 mls @ 50 mls/hr IV UD PRN PRN Reason: MG = or < 1.7 Levofloxacin (Levaquin) 750 mg in 150 mls @ 100 mls/hr IV Q48H [facility]; Protocol Last Infusion: 06/09/20 11:40 Dose: Infused Documented by: Insulin Human Lispro (Humalog) 0 unit SQ ACHS [facility]; Protocol Last Admin: 06/10/20 06:55 Dose: Not Given Documented by: Iron Carb/Multivit/[place]/Folic Acid (Multivitamin W/Minerals) 1 tab PO DAILY [facility] Last Admin: 06/09/20 10:03 Dose: 1 tab Documented by: Iron Carb/Multivit/Occupational Therapist Rehab Manager/Folic Acid (Multivitamin W/Minerals) 1 tab PO DAILY [facility] Last Admin: 06/09/20 10:00 Dose: Not Given Documented by: Magnesium Oxide (Magnesium Oxide) 400 mg PO DAILY [facility] Last Admin: 06/09/20 10:03 Dose: 400 mg Documented by: Melatonin (Melatonin 3mg Tablet) 3 mg PO HSP PRN PRN Reason: Insomnia Metformin HCl (Glucophage) 250 mg PO [facility] Last Admin: 06/09/20 08:28 Dose: 250 mg Documented by: Metoprolol Succinate (Toprol Xl) 50 mg PO BID [facility] Last Admin: 06/09/20 20:27 Dose: 50 mg Documented by: Nitroglycerin (Nitrostat) 0.4 mg SL Q5M PRN PRN Reason: Chest Pain Ondansetron HCl (Zofran Odt) 4 mg SL Q4-6HP PRN; Protocol PRN Reason: Nausea And Vomiting Ondansetron HCl (Zofran) 4 mg IV Q4-6HP PRN; Protocol PRN Reason: Nausea And Vomiting Clindamycin Phosphate Topical Cream 1 dose TOPICAL BID [facility] Last Admin: 06/09/20 20:27 Dose: Not Given Documented by: Empagliflozin [ (Jardiance] 10 Mg Tab) 1 dose PO QDAY [facility] Last Admin: 06/09/20 12:18 Dose: Not Given Documented by: Vitamins A,C,E-Zinc -Copper [ Preservision Areds] Cap 1 dose PO BID [facility] Last Admin: 06/09/20 20:28 Dose: Not Given Documented by: Polyethylene Glycol (Miralax) 17 gm PO DAILYP PRN PRN Reason: Constipation Potassium Chloride (Klor-Con) 40 meq PO DAILYP PRN PRN Reason: K+ < 3.5 Senna/Docusate Sodium (Senna Plus Tablet) 1 tab PO HS [facility] Last Admin: 06/09/20 20:27 Dose: 1 tab Documented by: Sitagliptin Phosphate (Januvia) 50 mg PO DAILY [facility] Last Admin: 06/09/20 10:04 Dose: 50 mg Documented by: Sodium Chloride (Saline Flush) 10 ml IV Q8 [facility] Last Admin: 06/10/20 04:28 Dose: 10 ml Documented by: ABG Interpretation ABG results: 07/16/20 14:06 ABG Methemoglobin 0 L VBG pH 7.29 L VBG pCO2 41.2 VBG pO2 52 H VBG HCO3 19.5 L VBG Total CO2 20.8 L VBG O2 Saturation 82.8 H VBG Base Excess -6.6 L A/P Narrative A/P Narrative: A: *b/l PNA: clinical improvement noted on antibiotic coverage -Covid Neg *Acute Hypoxic respiratory failure: 2/2 above. Clinically improving -now on room air *Sepsis:: resolved *CKD III: Creatinine at baseline 1.6 *DM type II: *HTN: *h/o CAD: on aspirin/Plavix/beta-sharon Plan: -Continue antibiotic coverage -Bronchodilators/supplemental oxygen -Continue aspiration precautions -refusing CC diet. Continue regular diet/sliding scale insulin/sitagliptin. Blood sugars improving -cont home BB -cont ASA/Plavix -PT OT nutrition support -Discharge planning per case management -ppx: heparin DNR Time Spent With Patient Time: Total time spent is greater than 50% in coordination of care (as documented) at patient's floor/unit and/or counseling patient: [facility]AL[facility] VTE Deep Vein Thrombosis/Pulmonary Embolism Present on Admission: No
[2020-06-10 07:52] LABS: Band Neutrophils % 2 % (0-10); Eosinophils % (Manual) 4 % (0-7); Lymphocytes % 5 % (15-49); Monocytes % (Manual) 4 % (1-12); Myelocytes % 1 % (0-0); Platelet Estimate NORMAL (NORMAL); RBC Morphology NORMAL (NORMAL); Segmented Neutrophils % 84 % (38-78)
[2020-06-10] MEDS: cefTRIAXone 2 GM in DEXTROSE 5% IN WATER 50 ML IV SCH (08:14)
[2020-06-10] MEDS: BISACODYL 5 MG TABLET PO SCH (08:14)
[2020-06-10] MEDS: guaiFENesin 600 MG TAB.SR.12H PO SCH (08:14)
[2020-06-10] MEDS: sitaGLIPtin 50 MG TABLET PO SCH (08:15)
[2020-06-10] MEDS: ASPIRIN 325 MG ENTERIC COATED TABLET PO SCH (08:15)
[2020-06-10] MEDS: METOPROLOL SUCCINATE 50 MG TAB.XL.24H PO SCH (08:15)
[2020-06-10] MEDS: CLOPIDOGREL 75 MG TABLET PO SCH (08:15)
[2020-06-10] MEDS: DOCUSATE SODIUM 100 MG CAPSULE PO SCH (08:15)
[2020-06-10] MEDS: HEPARIN 5,000 UNIT/ML VIAL SQ SCH (08:15)
[2020-06-10] MEDS: metFORMIN 500 MG TABLET PO SCH (08:15)
[2020-06-10] MEDS: HYDROCHLOROTHIAZIDE 12.5 MG CAPSULE PO SCH (08:15)
[2020-06-10] MEDS: FERROUS SULFATE 325 MG TABLET PO SCH (08:15)
[2020-06-10] MEDS: MULTIVIT,THER IRON,CA,FA & MIN 1 TABLET PO SCH (08:16)
[2020-06-10] MEDS: MAGNESIUM OXIDE 400 MG TABLET PO SCH (08:16)
[2020-06-10] MEDS: VITAMINS A C E ZINC COPPER PO SCH (08:18)
[2020-06-10] MEDS: CLINDAMYCIN PHOSPHATE TOPICAL SCH (08:20)
[2020-06-10] MEDS ORDERED: IPRATROPIUM/ALBUTEROL 3 ML AMPUL.NEB NEB PRN (09:20)
--- NOTE | 2020-06-10 10:28 | Discharge Summary ---
Discharge Provider Provider Patient information: Note initiated : 06/10/20 at 10:27 am Service Date, if different from initiated Date: [] Patient: Alex Boucher 85 y/o M admitted on 06/07/20 for shortness of breath. Chief Complaint: [] Date of admission: 06/07/20 15:36 Discharge date: 06/10/20 Primary care physician: Rima Shah Consults: 06/07/20 Consult to Physician [CONS] Stat Comment: Consulting Provider: Filippo Murphy Reason For Exam: Physician to Consult Discharge Meds Discharge Medications Home Medications acetaminophen 500 mg tablet 1,000 mg PO BID PRN tab 01/29/18 [History Confirmed 06/07/20 Last Taken Unknown] aspirin 325 mg tablet 325 mg PO QAM tab 01/29/18 [History Confirmed 06/07/20 Last Taken 06/07/20 08:00 325 MG.] bisacodyl 5 mg tablet,delayed release 10 mg PO QDAY tab 01/29/18 [History Confirmed 06/07/20 Last Taken 06/05/20 09:00 10 MG.] ferrous sulfate 325 mg (65 mg iron) tablet 325 mg PO QDAY tab 01/29/18 [History Confirmed 06/07/20 Last Taken 06/07/20 09:00 325 MG.] vitamins A,C,M-qmzj-bbblnl 14,320 unit-226 mg-200 unit capsule 1 cap PO BID cap 01/29/18 [History Confirmed 06/07/20 Last Taken 06/07/20 09:00 1 CAP] guaifenesin 1,200 mg tablet, extended release 12 hr 1,200 mg PO BID tab 01/18/19 [History Confirmed 06/07/20 Last Taken 06/07/20 09:00 1200 MG.] nitroglycerin 0.4 mg sublingual tablet 0.4 mg SUBLINGUAL Q5-15M PRN 01/18/19 [History Confirmed 06/07/20 Last Taken Unknown] atorvastatin 20 mg tablet 40 mg PO QHS tab 12/07/19 [History Confirmed 06/07/20 Last Taken 06/06/20 21:00 40 MG.] clindamycin phosphate 1 % lotion 1 applic TOPICAL BID 12/07/19 [History Confirmed 06/07/20 Last Taken Unknown] clopidogrel 75 mg tablet 75 mg PO QDAY 12/07/19 [History Confirmed 06/07/20 Last Taken 06/07/20 09:00 75 MG.] empagliflozin 10 mg tablet 10 mg PO QDAY 12/07/19 [History Confirmed 06/07/20 Last Taken 06/07/20 09:00 10 MG.] metformin 500 mg tablet 250 mg PO QDAY tab 12/07/19 [History Confirmed 06/07/20 Last Taken 06/07/20 09:00 250 MG.] multivitamin 1 tab PO QDAY 12/07/19 [History Confirmed 06/07/20 Last Taken 06/07/20 09:00 1 TAB] hydrochlorothiazide 12.5 mg capsule 12.5 mg PO BID 01/05/20 [History Confirmed 06/07/20 Last Taken 06/07/20 09:00 12.5 MG.] metoprolol succinate 100 mg tablet,extended release 24 hr 50 mg PO BID tab 01/05/20 [History Confirmed 06/07/20 Last Taken 06/07/20 09:00 50 MG.] magnesium oxide 400 mg PO QDAY #90 cap 04/10/20 [Rx Confirmed 06/07/20 Last Taken 06/07/20 09:00 400 MG.] levofloxacin 750 mg PO Q48H #1 tab 06/10/20 [Rx Last Taken Unknown] COURSE Hospital Course Hospital course: Mr. Boucher is a 85 year old M who resides at home along with his daughter with medical history of CKD stage III/CAD/HTN/HLD/DM type II , presented to the ER with 24-hour onset of worsening shortness of breath. Symptoms started roughly 3 days ago with increasing cough productive white sputum. No associated orthopnea or PND. He denies sick contacts or associated fever chills or body aches. This morning he could barely catch her breath and subsequently presents to the ER. Initial work-up was consistent with bibasilar pneumonia. White count over 20,000. Blood cultures were drawn and antibiotics initiated subsequently hospitalist service was consulted. At the time evaluation patient is fatigued lethargic and short of breath. he was able to answer most the question and endorse history as above. Denies recent hospitalization for pneumonia or exposure to healthcare facility. Also denies changes in medication, weight gain, diarrhea but endorses loss of appetite and progressive weakness and fatigue 06/08-patient doing well. Improved shortness of breath. White count down to 13,000. No overnight fever chills. Persistent tachypnea. Refused diabetic diet, wants regular diet. Improving sepsis. 06/09-patient doing well. Improved white count. Improved shortness of breath. No overnight fever chills. White count down to 11,000. On 2 L oxygen. Tachycardia improved. Anticipate discharge to SNF on Thursday. Continue antibiotic coverage. 06/10 Patient doing well. On room air. Ambulating the halls. Cough and shortness of breath at baseline per patient. A: *b/l PNA: clinical improvement noted on antibiotic coverage -Covid Neg *Acute Hypoxic respiratory failure: 2/2 above. Clinically improving -now on room air *Sepsis:: resolved *CKD III: Creatinine at baseline 1.6 *DM type II: *HTN: *h/o CAD: on aspirin/Plavix/beta-sharon Discharge diagnosis: Pneumonia acute hypoxic respiratory failure sepsis Time Spent with Patient Time attestation: Total time spent providing and/or coordinating discharge services: Time spent: Greater than 30 minutes EXAM Constitutional Vitals: Temp Pulse Resp BP Pulse Ox 98.4 F 94 H 16 105/59 92 06/10/20 06:51 06/10/20 06:54 06/10/20 06:54 06/10/20 06:51 06/10/20 06:51 Discharge Data Data Completed and Pending Labs on day of discharge: Labs from last 24 hours 06/10/20 06/10/20 05:08 05:08 WBC 11.0 RBC 4.32 L Hgb 13.3 L Hct 41.9 MCV 97.0 MCH 30.8 MCHC 31.7 RDW 14.3 Plt Count 187 MPV 10.3 Total Counted 100 Seg Neutrophils % 84 H Band Neutrophils % 2 Lymphocytes % 5 L Monocytes % (Manual) 4 Eosinophils % (Manual) 4 Myelocytes % 1 H Platelet Estimate Normal RBC Morphology Normal Sodium 136 Potassium 4.7 Chloride 105 Carbon Dioxide 19 L Anion Gap 12.0 BUN 23 Creatinine 1.6 H GFR Calculation 39 Glucose 127 H Uric Acid 6.5 Calcium 10.2 Phosphorus 2.8 Magnesium 2.0 Total Bilirubin 0.2 Direct Bilirubin < 0.2 GGT 53 AST 33 ALT 30 Alkaline Phosphatase 142 H Lactate Dehydrogenase 287 H Total Protein 7.0 Albumin 3.2 Globulin 3.8 H Albumin/Globulin Ratio 0.8 L Triglycerides 142 Preliminary micro results at discharge 06/07/20 14:06 Blood Culture - Preliminary Blood 06/07/20 14:14 Blood Culture - Preliminary Blood Discharge Plan Patient/Caregiver Discharge Instructions Activity: increase activity as tolerated Diet: Cardiac and Consistent Carbohydrate Prescriptions: New levofloxacin 750 mg tablet 750 mg PO Q48H Qty: 1 RF: 0 Continued magnesium oxide 400 mg magnesium capsule 400 mg PO QDAY Qty: 90 RF: 4 aspirin 325 mg tablet 325 mg PO QAM RF: 0 bisacodyl [Dulcolax (bisacodyl)] 5 mg tablet,delayed release (DR/EC) 10 mg PO QDAY RF: 0 ferrous sulfate 325 mg (65 mg iron) tablet 325 mg PO QDAY RF: 0 vitamins A,C,O-vwaz-zxfjvc [PreserVision AREDS] 14,320-226-200 igxe-te-pizz capsule 1 cap PO BID RF: 0 acetaminophen [Tylenol Extra Strength] 500 mg tablet 1,000 mg PO BID PRN (Reason: Pain) RF: 0 guaifenesin [Mucinex] 1,200 mg tablet extended release 12hr 1,200 mg PO BID RF: 0 nitroglycerin 0.4 mg tablet, sublingual 0.4 mg SUBLINGUAL Q5-15M PRN (Reason: Chest Pain) RF: 0 atorvastatin [Lipitor] 20 mg tablet 40 mg PO QHS RF: 0 metformin 500 mg tablet 250 mg PO QDAY RF: 0 hydrochlorothiazide 12.5 mg capsule 12.5 mg PO BID RF: 0 metoprolol succinate 100 mg tablet extended release 24 hr 50 mg PO BID RF: 0 clindamycin phosphate 1 % lotion 1 applic TOPICAL BID RF: 0 clopidogrel 75 mg tablet 75 mg PO QDAY RF: 0 Jardiance 10 mg tablet 10 mg PO QDAY RF: 0 multivitamin Tablet 1 tab PO QDAY RF: 0 Follow Up Plan Follow up with: Rima Shah ARNP [Primary Care Provider] - Patient Disposition: Home, Self-Care Rehab Potential: Fair Overall status at discharge: patient is progressing back to baseline Discharge Orders: Discharge Order (Routine); Ordered 06/10/20 Ordered By: Satya Dominguez Pending sale to [facility] VTE Deep Vein Thrombosis/Pulmonary Embolism Present on Admission: No
[2020-06-10] MEDS ORDERED: CALCIUM CARBONATE 500 MG TAB.CHEW CHEWED PRN (11:43)
== END 2020-06-10 14:20 | disposition home or self-care (01) | DRG 871 ==
LOC: ED 12:21 → MEDSUR 15:36
PROVIDERS: ADMIT Internal Medicine; ATTEND Internal Medicine

== ENCOUNTER 2021-08-07 10:00 | Inpatient (IN) ==
--- NOTE | 2021-08-07 11:37 | Emergency Department Note ---
Fall HPI General Chief Complaint: Fall Stated Complaint: Fell Thursday, hip Time Seen by Provider: 08/07/21 10:58 Source: patient, family, RN notes reviewed and old records reviewed Mode of arrival: wheelchair Limitations: no limitations History of Present Illness HPI Narrative: Narrative: 86-year-old male complains of a mechanical fall to the left side 5 days ago. He has bruising and ecchymosis to his left forearm and left elbow but he has full range of motion he has bruising and ecchymosis to his left hip and he states he is unable to bear weight on his left hip. It does not hurt when he lays in bed and when it moves around it does not hurt much and pellets fully flexed but again unable to bear weight. He denies any dyspnea or vascular changes denies loss of consciousness denies neck pain denies chest pain. MD Complaint: fall Onset (ago): day(s) (5) Fall From: standing Place Fall Occurred: home Loss of Consciousness: none Prolonged Down Time?: no Symptoms Prior to Fall: none Context: tripped/slipped Location of injury: pelvis (Left hip) Location of injury - extremities: Left: elbow and forearm Quality: aching Associated symptoms (after fall): Reports unable to walk; Denies headache, neck pain, numbness, weakness, chest pain, shortness of breath, abdominal pain, hematuria, lightheaded, vertigo and confusion Related Data Home Medications Medication Instructions Recorded Confirmed acetaminophen 500 mg tablet 1,000 mg PO BID PRN tab 01/29/18 08/07/21 aspirin 325 mg tablet 81 mg PO QAM tab 01/29/18 08/07/21 bisacodyl 5 mg tablet,delayed 10 mg PO QDAY tab 01/29/18 08/07/21 release ferrous sulfate 325 mg (65 mg 325 mg PO QDAY tab 01/29/18 08/07/21 iron) tablet vitamins A,C,V-leuj-szblgq 14,320 1 cap PO BID cap 01/29/18 08/07/21 unit-226 mg-200 unit capsule guaifenesin 1,200 mg tablet, 1,200 mg PO BID tab 01/18/19 08/07/21 extended release 12 hr nitroglycerin 0.4 mg sublingual 0.4 mg SUBLINGUAL Q5-15M PRN 01/18/19 08/07/21 tablet atorvastatin 20 mg tablet 40 mg PO QHS tab 12/07/19 08/07/21 clindamycin phosphate 1 % lotion 1 applic TOPICAL PRN PRN 12/07/19 08/07/21 clopidogrel 75 mg tablet 75 mg PO QDAY 12/07/19 08/07/21 empagliflozin 10 mg tablet 10 mg PO QDAY 12/07/19 08/07/21 metformin 500 mg tablet 250 mg PO QDAY tab 12/07/19 08/07/21 multivitamin 1 tab PO QDAY 12/07/19 08/07/21 metoprolol succinate 100 mg 50 mg PO BID tab 01/05/20 08/07/21 tablet,extended release 24 hr famotidine 20 mg tablet 20 mg PO QDAY 08/07/20 08/07/21 Previous Rx's Medication Instructions Recorded magnesium oxide 400 mg PO QDAY #90 cap 04/10/20 Allergies Allergy/AdvReac Type Severity Reaction Status Date / Time iodine AdvReac Intermediate Hives Verified 01/04/21 08:56 Review of Systems ROS ROS Narrative: Narrative: All systems ED: reviewed and negative except as stated. 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) Squamous cell carcinoma (Chronic) Shortness of breath (Chronic) Peripheral neuropathy (Chronic) Angina pectoris (Chronic) Type 2 diabetes mellitus with stage 3 chronic kidney disease, without long-term current use of insulin (Chronic) 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) 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/antiplatelets (Acute) History of coronary artery stent placement (Chronic) Shortness of breath (Acute) Borderline low O2 saturation (Acute) Poor appetite (Acute) Asbestos exposure (Acute) 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 Depressive disorder Failure to thrive GERD (gastroesophageal reflux disease) History of bladder cancer Hyperkalemia Hyperlipidemia Hypertensive disorder Hypertensive renal disease with renal failure He has mid range proteinuria and establish CKD 3 and his blood pressure at least today was above the goal of 130/80. While I think his primary renal problem is diabetes certainly this degree of hypertension could contribute as well. We will see him back in 3 months and probably reinstitute RAASI therapy with an ARB due to his chronic cough Insomnia Irritability retirement (current) use of antithrombotics/antiplatelets clopidogrel and ASA as of 06/10/2020. 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 History of hernia repair (~195) History of total cystectomy History of urostomy (~2014) With bladder repair - urostomy bag in place Hx of CABG 4 stents in total placed now S/P skin biopsy (~1985) Family History Brother Diabetes mellitus Father Jaundice Sister Malignant tumor of breast Diabetes mellitus Unknown Diabetes mellitus Grandmother Diabetes mellitus Maternal Mother Heart disease Social History Smoking Status: Former smoker Alcohol Intake Frequency: a few times a month Substance Use: does not use Exam Narrative Narrative: Narrative: General Limitations: no limitations General appearance: Present alert and in no apparent distress Head Head: Present atraumatic, normocephalic and normal inspection Eye Eye: Present normal appearance, PERRL and EOMI ENT ENT: Present normal exam and mucous membranes moist Neck Neck: Present normal inspection, full ROM and trachea midline; Absent tenderness, meningismus and lymphadenopathy Chest Chest: Present normal inspection and symmetric chest wall rise; Absent tenderness Respiratory Respiratory: Present wheezes and decreased breath sounds; Absent respiratory distress Cardiovascular Cardiovascular: Present regular rate, normal rhythm and systolic murmur Adbominal Abdominal: Present soft; Absent distention, tenderness, guarding and rebound Extremities Extremities: Present normal inspection, full ROM, tenderness (Tenderness with range of motion of the left hip. It is not rotated or retracted.) and other (Ecchymosis to left forearm and elbow full range of motion distal neurovascular intact); Absent normal capillary refill, pedal edema and pretibial edema Back Back: Present normal inspection and full ROM; Absent CVA tenderness (R) and CVA tenderness (L) Neurological Neurological: Present alert and oriented X3; Absent normal gait and motor sensory deficit Psychiatric Psychiatric: Present normal affect and normal mood Skin Skin: Absent rash Course Vital Signs Vital signs: Vital Signs Temperature 98 F 08/07/21 10:03 Pulse Rate 98 H 08/07/21 10:03 Respiratory Rate 24 H 08/07/21 10:03 Blood Pressure 127/68 08/07/21 10:03 Pulse Oximetry (%) 93 08/07/21 10:03 Temperature 98 F 08/07/21 10:03 Pulse Rate 60 08/07/21 14:01 Respiratory Rate 24 H 08/07/21 10:03 Blood Pressure 137/65 08/07/21 14:01 Pulse Oximetry (%) 95 08/07/21 14:01 [facility] Narrative Medical decision making narrative: Narrative: 86-year-old male with left hip fracture. Discussed with Dr. De Luna of orthopedic surgery who graciously agreed to see the patient in consultation and plan for surgery request patient be admitted by hospitalist. Differential Diagnosis Differential Diagnosis: Fracture dislocation sprain Medical Records Medical records reviewed: Yes I reviewed the patient's medical records. Lab Data Result diagrams: 08/07/21 12:30 08/07/21 12:30 Labs: Lab Results 08/07/21 08/07/21 08/07/21 Range/Units 12:30 12:30 12:30 WBC 9.1 (4.5-11.0) K/mcL RBC 5.08 (4.63-6.08) M/mcL Hgb 15.6 (13.7-17.5) g/dL Hct 49.3 (40.1-51.0) % MCV 97.0 (80.0-100.0) fL MCH 30.7 (26.0-34.0) pg MCHC 31.6 (31.0-36.0) g/dL RDW 12.7 (11.5-14.5) % Plt Count 217 (140-440) K/mcL MPV 10.4 (7.4-10.4) fL Neut % (Auto) 79.6 H (38.0-78.0) % Lymph % (Auto) 7.2 L (15.5-49.0) % Walker % (Auto) 8.8 (1.0-12.0) % Eos % (Auto) 3.5 (0.0-7.0) % Baso % (Auto) 0.9 (0.0-2.0) % Lymph # (Auto) 0.65 L (1.50-4.80) K/mcL Walker # (Auto) 0.80 (0.10-0.90) K/mcL Eos # (Auto) 0.32 (0.00-0.70) K/mcL Baso # (Auto) 0.08 (0.00-0.30) K/mcL Absolute Neutrophils 7.20 (1.80-8.00) K/mcL PT 14.6 H (11.9-14.5) sec INR 1.1 (0.9-1.1) Sodium 137 (133-145) mmol/L Potassium 5.4 H (3.3-5.1) mmol/L Chloride 105 (96-108) mmol/L Carbon Dioxide 21 L (22-30) mmol/L Anion Gap 11.0 (8.0-16.0) BUN 26 H (8-23) mg/dL Creatinine 1.5 H (0.7-1.2) mg/dL GFR Calculation 41 Glucose 110 H (70-105) mg/dL Calcium 10.4 (8.6-10.4) mg/dL Total Bilirubin 0.3 (0.1-1.0) mg/dL AST 26 (<40) U/L ALT 16 (<40) U/L Alkaline Phosphatase 122 H (39-117) U/L Total Protein 7.5 (5.9-8.4) gm/dL Albumin 3.6 (3.2-5.2) gm/dL Globulin 3.9 H (2.2-3.7) gm/dL Albumin/Globulin Ratio 0.9 L (1.0-2.3) ED POC Tests ED POC Tests: EDWARDO - SARS Antigen Negative Radiology Data Radiology results reviewed: Yes I reviewed the patient's radiology results. Radiology results narrative: Chest x-ray IMPRESSION: No acute abnormality Interpreted and Authenticated by: Jonatan Henao 08/07/21 Hip x-ray IMPRESSION: Subcapital fracture of the left femoral neck Interpreted and Authenticated by: Jonatan Henao 08/07/21 EKG Data EKG #1: EKG attestation: Yes I reviewed and interpreted this EKG. and Yes There are no EKG findings of acute coronary syndrome EKG shows normal: sinus rhythm Rate: normal (66) Rhythm: NSR [place]/QRS: normal Heart block present: None ST segment elevation in: None ST segment depression in: None Q waves: III and aVF T wave inversions noted in: None Hyperacute T waves: None QTc: normal QRS morphology: Present normal Interpretation: no acute changes Pulse Oximetry Data Pulse Ox %: 94 Interpretation: 94% on room air within normal limits Discharge Plan Patient/Caregiver Discharge Instructions Pt seen by BUSINESS CONTINUITY MANAGER/PA only: No Clinical Impression: Closed hip fracture Qualifiers: Encounter type: initial encounter Laterality: left Qualified Code(s): S72.002A - Fracture of unspecified part of neck of left femur, initial encounter for closed fracture Patient Disposition: Xfer As Inpt ([facility]) Condition: Fair Follow up with: Rima Shah, BUTT PRESSER [Primary Care Provider] - Prescriptions: No Action magnesium oxide 400 mg magnesium capsule 400 mg PO QDAY Qty: 90 RF: 4 aspirin 325 mg tablet 81 mg PO QAM RF: 0 bisacodyl [Dulcolax (bisacodyl)] 5 mg tablet,delayed release (DR/EC) 10 mg PO QDAY RF: 0 ferrous sulfate 325 mg (65 mg iron) tablet 325 mg PO QDAY RF: 0 vitamins A,C,G-vrmc-yvzmuj [PreserVision AREDS] 14,320-226-200 czxb-gn-odwi capsule 1 cap PO BID RF: 0 acetaminophen [Tylenol Extra Strength] 500 mg tablet 1,000 mg PO BID PRN (Reason: Pain) RF: 0 guaifenesin [Mucinex] 1,200 mg tablet extended release 12hr 1,200 mg PO BID RF: 0 nitroglycerin 0.4 mg tablet, sublingual 0.4 mg SUBLINGUAL Q5-15M PRN (Reason: Chest Pain) RF: 0 atorvastatin [Lipitor] 20 mg tablet 40 mg PO QHS RF: 0 metformin 500 mg tablet 250 mg PO QDAY RF: 0 famotidine 20 mg tablet 20 mg PO QDAY RF: 0 metoprolol succinate 100 mg tablet extended release 24 hr 50 mg PO BID RF: 0 clindamycin phosphate 1 % lotion 1 applic TOPICAL PRN PRN (Reason: Pain) RF: 0 clopidogrel 75 mg tablet 75 mg PO QDAY RF: 0 Jardiance 10 mg tablet 10 mg PO QDAY RF: 0 multivitamin Tablet 1 tab PO QDAY RF: 0
[2021-08-07] MEDS ORDERED: 0.9 % SODIUM CHLORIDE 500 ML IV ONE (12:10)
--- NOTE | 2021-08-07 12:29 | XRay Report ---
HISTORY: Fell with left hip injury FINDINGS: There is an acute subcapital fracture the left femoral neck. There is impaction of the neck into the top of the humeral head resulting in mild valgus angulation. The head is normally aligned with the acetabulum and there is no underlying arthritis. Severe disc space narrowing is present at L3-4 and L4-5. IMPRESSION: Subcapital fracture of the left femoral neck Interpreted and Authenticated by: Jonatan Henao 08/07/21
--- NOTE | 2021-08-07 12:32 | XRay Report ---
HISTORY: Preop to repair left hip fracture FINDINGS: There are couple peripheral nodular densities in both lungs. These correspond with large calcified pleural plaques seen on a prior chest CT done on 10/16/20. There has been no growth to suggest underlying neoplasm. There is no evidence of pneumonia or congestive heart failure. IMPRESSION: No acute abnormality Interpreted and Authenticated by: Jonatan Henao 08/07/21
[2021-08-07 13:21] LABS: Basophils # (Auto) 0.08 K/mcL (0.00-0.30); Basophils % (Auto) 0.9 % (0.0-2.0); Eosinophils # (Auto) 0.32 K/mcL (0.00-0.70); Eosinophils % (Auto) 3.5 % (0.0-7.0); Hematocrit 49.3 % (40.1-51.0); Hemoglobin 15.6 g/dL (13.7-17.5); Lymphocytes # (Auto) 0.65 K/mcL (1.50-4.80); Lymphocytes % (Auto) 7.2 % (15.5-49.0); Mean Corpuscular HGB Conc 31.6 g/dL (31.0-36.0); Mean Platelet Volume 10.4 fL (7.4-10.4); Monocytes % (Auto) 8.8 % (1.0-12.0); Neutrophils % (Auto) 79.6 % (38.0-78.0); Platelet Count 217 K/mcL (140-440); RBC 5.08 M/mcL (4.63-6.08); Red Cell Distribution Width 12.7 % (11.5-14.5); WBC 9.1 K/mcL (4.5-11.0)
[2021-08-07 13:32] LABS: INR 1.1 (0.9-1.1); Prothrombin Time 14.6 sec (11.9-14.5)
[2021-08-07 13:42] LABS: ALT/SGPT 16 U/L (<40); AST/SGOT 26 U/L (<40); Albumin 3.6 gm/dL (3.2-5.2); Albumin/Globulin Ratio 0.9 (1.0-2.3); Alkaline Phosphatase 122 U/L (39-117); Bilirubin,Total 0.3 mg/dL (0.1-1.0); Blood Urea Nitrogen 26 mg/dL (8-23); Calcium 10.4 mg/dL (8.6-10.4); Carbon Dioxide 21 mmol/L (22-30); Chloride 105 mmol/L (96-108); Globulin 3.9 gm/dL (2.2-3.7); Glomerular Filtration Rate 41; Glucose 110 mg/dL (70-105)
[2021-08-07 16:51] LABS: POC Calcium, Ionized 1.3 mmEq/L (1.16-1.32); POC Creatinine 1.6 mg/dL (0.6-1.2); POC Potassium 5.2 mEql/L (3.3-5.1)
[2021-08-07] MEDS ORDERED: ceFAZolin 2 GM in DEXTROSE 5% IN WATER 50 ML IV SCH ×2 (17:00→18:00)
[2021-08-07] MEDS ORDERED: MAGNESIUM SULFATE 2 GM/50 ML BAG IV ONE (17:04)
[2021-08-07] MEDS ORDERED: DEXAMETHASONE 10 MG/ML VIAL ONE (17:04)
[2021-08-07] MEDS ORDERED: PHENYLephrine 1 MG/10 ML SYRINGE (ANEST) ONE (17:04)
[2021-08-07] MEDS ORDERED: LIDOCAINE HCL/PF 100 MG/5 ML SYRINGE IV ONE (17:04)
[2021-08-07] MEDS ORDERED: KETAMINE 50 MG/ML Syringe (ANEST) IV ONE (17:04)
[2021-08-07] MEDS ORDERED: ETOMIDATE 20 MG/10 ML VIAL IV ONE (17:04)
[2021-08-07] MEDS ORDERED: ONDANSETRON 4 MG/2 ML VIAL ONE (17:04)
[2021-08-07] MEDS ORDERED: GLYCOPYRROLATE 0.2 MG/ML VIAL IV ONE (17:04)
[2021-08-07] MEDS ORDERED: MIDAZOLAM 2 MG/2 ML VIAL ONE (17:04)
--- NOTE | 2021-08-07 17:23 | History and Physical Report ---
DATE OF ADMISSION: 08/07/2021 CHIEF COMPLAINT: Left hip pain status post fall 5 days prior. HISTORY OF PRESENT ILLNESS: The patient is an 86-year-old male, who fell on a cement garage floor 5 days ago. He did lay there for approximately 3 hours before being found by his daughter and son-in-law. He denies any other injuries other than a small abrasion on his left forearm as well as bruising. He denies any head injury. He also denies loss of consciousness and syncope at that time. He said he lost his balance when bending over. REVIEW OF SYSTEMS: Negative except for stated in the HPI. PAST MEDICAL HISTORY: Includes hyperlipidemia, anemia, multiple nodules of his lungs, GERD, depression, hypertension, COPD, stage III kidney disease, history of bladder cancer, history of coronary artery disease, insomnia, type 2 diabetes. SURGICAL HISTORY: Includes 2 coronary artery stent placement, hernia repair, cystectomy, placement of urostomy. He had also had a history of CABG and a skin biopsy. FAMILY MEDICAL HISTORY: Brother had diabetes. Father had jaundice. Mother had heart disease. SOCIAL HISTORY: The patient is a former smoker. Occasionally has a beer. PHYSICAL EXAMINATION: CURRENT VITAL SIGNS: Include blood pressure 130/66, pulse rate is 75, and pulse ox is 94% on room air. GENERAL: The patient is alert and oriented times three, has appropriate mood and affect. HEART: Regular. LUNGS: Clear. EXTREMITIES: He has mild tenderness on palpation over the left greater trochanter. He is able to actively plantar flex and dorsiflex his left foot and ankle. He does have a 5/5 plantar flexion and dorsiflexion. He has palpable pedal pulse and tibial pulse. His sensation is grossly intact to light touch. His right lower extremity, he has full active passive range of motion of his hip and knee as well as ankle. He as 5/5 strength, plantar flexion and dorsiflexion. He has palpable pedal and tibial pulses. His sensation is grossly intact to light touch, and he has no tenderness over the right greater trochanter. SKIN: Intact. He does have a sore healing abrasion on his left forearm. No other injuries noted at this time. DIAGNOSTIC DATA: X-rays taken in the ED do show a nondisplaced femoral neck fracture. IMPRESSION: Nondisplaced left femoral neck fracture. PLAN: The patient has elected to proceed with a left hip percutaneous pinning of the femoral neck fracture to be performed by Dr. De Luna. I had a long discussion with the patient regarding the procedure and the postoperative protocol. I advised the patient of risk of surgery including bleeding; infection; injuring nerves, blood vessels, other structures in the areas; anesthetic risk; risk could include heart attack, stroke, or even ; fracture nonunion; or avascular necrosis of the femoral head which could potentially require total hip arthroplasty. The patient was agreeable to this plan and is willing to proceed. JUHI:teetee Job ID: [id number] Doc ID: [id number] Erickson Salomon PA-C
--- NOTE | 2021-08-07 17:49 | Brief Operative Note ---
Brief Operative Note Date of procedure: 08/07/21 Pre-op diagnosis: Left valgus impacted femoral neck fracture Post-op diagnosis: same Procedure: Percutaneous screw fixation of left valgus impacted femoral neck fracture Grafts/Implants: Yes (3 6.5 cannulated screws) Anesthesia: GETA Findings: valgus impacted femoral neck fracture Complications: none Surgeon: Ralph De Luna Acetylene Torch Burner: Erickson Salomon Estimated blood loss (cc): 30 Condition: stable Disposition: PACU
[2021-08-07] MEDS ORDERED: morphine 4 MG/ML VIAL IV PRN (17:51)
[2021-08-07] MEDS ORDERED: HYDROcodone/APAP 5/325MG TABLET PO PRN (17:51)
[2021-08-07] MEDS ORDERED: KETOROLAC 15 MG/ML VIAL IV PRN ×2 (17:51→18:00)
[2021-08-07] MEDS ORDERED: FLEETS ADULT ENEMA PR PRN (17:51)
[2021-08-07] MEDS ORDERED: BISACODYL 10 MG SUPP.RECT PR PRN (17:51)
[2021-08-07] MEDS ORDERED: MAGNESIUM HYDROXIDE 30 ML ORAL.SUSP PO PRN (17:51)
[2021-08-07] MEDS ORDERED: DEXTROSE 50% 50 ML VIAL IV PRN ×2 (17:57→20:48)
[2021-08-07] MEDS ORDERED: DEXTROSE 31 GM ORAL.SUSP PO PRN ×2 (17:57→20:48)
[2021-08-07] MEDS ORDERED: ACETAMINOPHEN 1,000 MG/100 ML BAG IV ONE (18:00)
[2021-08-07] MEDS ORDERED: MEPERIDINE 25 MG/ML VIAL IV PRN (18:00)
[2021-08-07] MEDS ORDERED: IPRATROPIUM/ALBUTEROL 3 ML AMPUL.NEB NEB PRN (18:00)
[2021-08-07] MEDS ORDERED: fentaNYL 100 MCG/2 ML VIAL IV PRN (18:00)
[2021-08-07] MEDS ORDERED: LACTATED RINGERS 1,000 ML IV SCH (18:00)
[2021-08-07] MEDS ORDERED: METHOCARBAMOL 1,000 MG/10 ML VIAL IV PRN (18:00)
[2021-08-07] MEDS ORDERED: ONDANSETRON 4 MG/2 ML VIAL IV PRN (18:00)
--- NOTE | 2021-08-07 18:28 | XRay Report ---
HISTORY: FINDINGS: IMPRESSION: 0.5 minutes of fluoroscopy time was used Interpreted and Authenticated by: Jonatan Henao 08/07/21
[2021-08-07] MEDS ORDERED: NITROGLYCERIN 0.4 MG TAB.SUBL SL PRN (19:35)
[2021-08-07] MEDS: 0.9 % SODIUM CHLORIDE 1,000 ML IV SCH (19:46)
[2021-08-07] MEDS: ATORVASTATIN 20 MG TABLET PO SCH (20:18)
[2021-08-07] MEDS: SENNOSIDES 1 TABLET PO SCH (20:18)
[2021-08-07] MEDS: METOPROLOL SUCCINATE 50 MG TAB.XL.24H PO SCH (20:19)
[2021-08-07] MEDS: DOCUSATE SODIUM 100 MG CAPSULE PO SCH (20:19)
[2021-08-07] MEDS: VIT A,C & E/LUTEIN/MINERALS TABLET PO SCH (20:19)
[2021-08-07] MEDS: INSULIN LISPRO 1 UNIT/0.01 ML UNIT SQ SCH ×2 (20:36→22:45)
--- NOTE | 2021-08-07 20:46 | Internal Med History&Physical ---
HPI History of Present Illness Patient information: Note initiated : 08/07/21 at 8:41 pm Service Date, if different from initiated Date: [] Patient: Alex Boucher 86 y/o M admitted on 08/07/21 for Fell Thursday, hip. Chief Complaint: [] History of present illness: Mr. Boucher is a 86 year old male admitted for a left femoral neck fracture. The patient has a history of hypertension, type II diabetes mellitus, coronary artery disease, COPD, chronic kidney disease, bladder cancer. He says that he fell a few days ago and has experienced severe left hip pain since that time. On arrival to the ED, orthopedic surgery saw the patient and performed surgical fixation. Subsequently the patient was admitted to the hospital. Postop, he is in today in stable condition. Review of systems Constitutional: no fever, fatigue, or weight loss Eyes: no vision changes or pain Cardiovascular: no chest pain, no palpitations Respiratory: no cough or dyspnea Gastrointestinal: no abdominal pain, no nausea, vomiting, or diarrhea Genitourinary: no dysuria or difficulty voiding Musculoskeletal: positive for hip pain Integumentary: no skin lesion or wound Neurological: no focal weakness or numbness Psychiatric: no anxiety or depression Physical exam Head: Atraumatic, normal inspection. Eyes: normal appearance, no scleral icterus. Neck: full ROM Respiratory: no respiratory distress. Cardiovascular: normal rate and rhythm, S1, S2. GI/Abdominal: soft, nontender, no guarding. Extremities: left hip incision covered with cold pack Neurological: CN II-XII intact, intact motor, intact sensation. Psychiatric: normal mood. 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) Squamous cell carcinoma (Chronic) Shortness of breath (Chronic) Peripheral neuropathy (Chronic) Angina pectoris (Chronic) Type 2 diabetes mellitus with stage 3 chronic kidney disease, without long-term current use of insulin (Chronic) 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) Pneumonia (Acute) senior care (current) use of antithrombotics/antiplatelets (Acute) History of coronary artery stent placement (Chronic) Shortness of breath (Acute) Borderline low O2 saturation (Acute) Poor appetite (Acute) Asbestos exposure (Acute) 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 Depressive disorder Failure to thrive GERD (gastroesophageal reflux disease) History of bladder cancer Hyperkalemia Hyperlipidemia Hypertensive disorder Hypertensive renal disease with renal failure He has mid range proteinuria and establish CKD 3 and his blood pressure at least today was above the goal of 130/80. While I think his primary renal problem is diabetes certainly this degree of hypertension could contribute as well. We will see him back in 3 months and probably reinstitute RAASI th erapy with an ARB due to his chronic cough Insomnia Irritability senior care (current) use of antithrombotics/antiplatelets clopidogrel and ASA as of 06/10/2020. 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 History of hernia repair (~1955) History of total cystectomy History of urostomy (~2014) With bladder repair - urostomy bag in place Hx of CABG 4 stents in total placed now S/P skin biopsy (~1985) Family History Brother Diabetes mellitus Father Jaundice Sister Malignant tumor of breast Diabetes mellitus Unknown Diabetes mellitus Grandmother Diabetes mellitus Maternal Mother Heart disease Social History education level: high school occupational status: retired sexually active: No other: Children-4 alcohol intake frequency: a few times a month substance use type: does not use seatbelt use: always working smoke detector in home: Yes firearms in home: No MEDS/ALLERGIES Home Medications and Allergies Home Medications Medication Instructions Recorded Confirmed Type acetaminophen 500 mg tablet 1,000 mg PO BID PRN tab 01/29/18 08/07/21 History aspirin 325 mg tablet 81 mg PO QAM tab 01/29/18 08/07/21 History bisacodyl 5 mg tablet,delayed 10 mg PO QDAY tab 01/29/18 08/07/21 History release ferrous sulfate 325 mg (65 mg 325 mg PO QDAY tab 01/29/18 08/07/21 History iron) tablet vitamins A,C,C-izhv-zaxwzt 14,320 1 cap PO BID cap 01/29/18 08/07/21 History unit-226 mg-200 unit capsule nitroglycerin 0.4 mg sublingual 0.4 mg SUBLINGUAL Q5-15M PRN 01/18/19 08/07/21 History tablet atorvastatin 20 mg tablet 40 mg PO QHS tab 12/07/19 08/07/21 History clindamycin phosphate 1 % lotion 1 applic TOPICAL PRN PRN 12/07/19 08/07/21 History clopidogrel 75 mg tablet 75 mg PO QDAY 12/07/19 08/07/21 History empagliflozin 10 mg tablet 10 mg PO QDAY 12/07/19 08/07/21 History metformin 500 mg tablet 250 mg PO QDAY tab 12/07/19 08/07/21 History multivitamin 1 tab PO QDAY 12/07/19 08/07/21 History metoprolol succinate 100 mg 50 mg PO BID tab 01/05/20 08/07/21 History tablet,extended release 24 hr magnesium oxide 400 mg PO QDAY #90 cap 04/10/20 08/07/21 Rx famotidine 20 mg tablet 20 mg PO QDAY 08/07/20 08/07/21 History Allergies Allergy/AdvReac Type Severity Reaction Status Date / Time iodine AdvReac Intermediate Hives Verified 01/04/21 08:56 EXAM Constitutional Vitals: Temp Pulse Resp BP Pulse Ox 97 F 78 17 175/85 94 08/07/21 18:26 08/07/21 18:27 08/07/21 18:27 08/07/21 18:26 08/07/21 18:27 DATA Data Completed and Pending Labs: Labs from last 24 hours 08/07/21 08/07/21 08/07/21 16:38 12:30 12:30 WBC RBC Hgb Hct POC Hct 44 MCV MCH MCHC RDW Plt Count MPV Neut % (Auto) Lymph % (Auto) [place] % (Auto) Eos % (Auto) Baso % (Auto) Lymph # (Auto) [place] # (Auto) Eos # (Auto) Baso # (Auto) Absolute Neutrophils PT 14.6 H INR 1.1 POC Sodium 142 Sodium 137 POC Potassium 5.2 H Potassium 5.4 H POC Chloride 113 H Chloride 105 Carbon Dioxide 21 L POC Total CO2 22 Anion Gap 11.0 POC BUN 29 H BUN 26 H Creatinine 1.5 H POC Creatinine 1.6 H GFR Calculation 41 Glucose 110 H POC Glucose 95 Calcium 10.4 POC WB Ioniz Calcium 1.30 Total Bilirubin 0.3 AST 26 ALT 16 Alkaline Phosphatase 122 H Total Protein 7.5 Albumin 3.6 Globulin 3.9 H Albumin/Globulin Ratio 0.9 L 08/07/21 12:30 WBC 9.1 RBC 5.08 Hgb 15.6 Hct 49.3 POC Hct MCV 97.0 MCH 30.7 MCHC 31.6 RDW 12.7 Plt Count 217 MPV 10.4 Neut % (Auto) 79.6 H Lymph % (Auto) 7.2 L [place] % (Auto) 8.8 Eos % (Auto) 3.5 Baso % (Auto) 0.9 Lymph # (Auto) 0.65 L [place] # (Auto) 0.80 Eos # (Auto) 0.32 Baso # (Auto) 0.08 Absolute Neutrophils 7.20 PT INR POC Sodium Sodium POC Potassium Potassium POC Chloride Chloride Carbon Dioxide POC Total CO2 Anion Gap POC BUN BUN Creatinine POC Creatinine GFR Calculation Glucose POC Glucose Calcium POC WB Ioniz Calcium Total Bilirubin AST ALT Alkaline Phosphatase Total Protein Albumin Globulin Albumin/Globulin Ratio A/P Narrative A/P Narrative: Assessment: 86 year old male with a history of hypertension, type II diabetes mellitus, coronary artery disease, COPD, chronic kidney disease, bladder cancer admitted for left hip fracture s/p surgical fixation with screw placement. #Left femoral neck fracture s/p surgical fixation #Hyperkalemia #Hypertension #Type 2 diabetes mellitus #Coronary artery disease #COPD #CKD IIIb #Hx of bladder cancer Plan -Analgesics prn -Essential home medications, hold Metformin. -Follow potassium and renal function. -IV fluid post op -SSI-low -PT -DVT ppx: per ortho -Code status: Full -Dispo: home vs SNF Time Spent With Patient Time: Total time spent is greater than 50% in coordination of care (as documented) at patient's floor/unit and/or counseling patient:
[2021-08-07] MEDS ORDERED: ASPIRIN 325 MG ENTERIC COATED TABLET PO SCH (21:00)
[2021-08-08] MEDS: ceFAZolin 1 GM VIAL IV SCH ×2 (01:11→08:51)
[2021-08-08] MEDS: 0.9 % SODIUM CHLORIDE 1,000 ML IV SCH ×2 (04:20→14:06)
--- NOTE | 2021-08-08 06:20 | EKG ---
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
--- NOTE | 2021-08-08 07:06 | Orthopedic Progress Note ---
SUBJECTIVE Subjective Patient information: Note initiated : 08/08/21 at 7:04 am Service Date, if different from initiated Date: [] Patient: Alex Boucher 86 y/o M admitted on 08/07/21 for Fell Thursday, hip. Chief Complaint: no c/o. Constitutional Vitals: Vital Signs Temp Pulse Resp BP Pulse Ox 97.2 F 76 16 148/72 92 08/08/21 04:47 08/08/21 04:47 08/08/21 04:47 08/08/21 04:47 08/08/21 04:47 Period Temp Pulse Resp BP Sys/Branch Pulse Ox Last 24 Hr 96.9 F-98 F 60-98 15-24 123-175/59-103 90-100 Intake and Output 08/07/21 08/08/21 08/08/21 21:59 05:59 13:59 Intake Total 1150 300 Output Total 115 1125 Balance 1035 -825 Weight 161 lb 4.8 oz bandages c/d/i nvi-distal Intake & Output: Intake & Output 08/07/21 08/08/21 08/08/21 21:59 05:59 13:59 Intake Total 1150 300 Output Total 115 1125 Balance 1035 -825 Weight 161 lb 4.8 oz Intake: IV 550 100 Sodium Chloride 0.9% 500 ml @ 500 Wide Open IV .Q0M ONE Rx#: [id number] Ancef 2 gm In Dextrose 5% in 50 Water 50 ml @ 100 mls/hr IV PREOP [place] Rx#:[id number] Oral 200 IV - Manual Only 600 Output: Urine Catheter Amount 100 1125 Estimated Blood Loss 15 Other: Urine Appearance Cloudy Cloudy Mucous Threads Urine Color Bright Yellow Bright Yellow Urine Odor Strong Strong OBJ DATA Labs CBC & Chem 7: 08/07/21 12:30 08/07/21 12:30 Labs: Abnormal Lab Results 08/07/21 08/07/21 08/07/21 16:38 12:30 12:30 Neut % (Auto) Lymph % (Auto) Lymph # (Auto) PT 14.6 H POC Potassium 5.2 H Potassium 5.4 H POC Chloride 113 H Carbon Dioxide 21 L POC BUN 29 H BUN 26 H Creatinine 1.5 H POC Creatinine 1.6 H Glucose 110 H Alkaline Phosphatase 122 H Globulin 3.9 H Albumin/Globulin Ratio 0.9 L 08/07/21 12:30 Neut % (Auto) 79.6 H Lymph % (Auto) 7.2 L Lymph # (Auto) 0.65 L PT POC Potassium Potassium POC Chloride Carbon Dioxide POC BUN BUN Creatinine POC Creatinine Glucose Alkaline Phosphatase Globulin Albumin/Globulin Ratio Meds: Medications Hydrocodone Bitart/Acetaminophen (Hydrocodone/Apap 5/325mg Tablet) 0 tab PO Q4HP PRN; Protocol PRN Reason: Per Pain Protocol Last Admin: 08/08/21 02:27 Dose: 1 tab Documented by: Atorvastatin Calcium (Atorvastatin 20 Mg Tablet) 40 mg PO QHS [facility] Last Admin: 08/07/21 20:18 Dose: 40 mg Documented by: Bisacodyl (Bisacodyl 10 Mg Supp.Rect) 10 mg OR Q2-3DAYS PRN PRN Reason: Constipation Bisacodyl (Bisacodyl 5 Mg Tablet) 10 mg PO QDAY [facility] Cefazolin Sodium (Cefazolin 1 Gm Vial) 2 gm IV Q8H [facility] Stop: 08/08/21 09:01 Last Admin: 08/08/21 01:11 Dose: 2 gm Documented by: Clopidogrel Bisulfate (Clopidogrel 75 Mg Tablet) 75 mg PO DAILY [place] Dextrose (Dextrose 50% 50 Ml Vial) 0 ml IV UD PRN PRN Reason: Hypoglycemia Dextrose (Dextrose 50% 50 Ml Vial) 0 ml IV UD PRN PRN Reason: Hypoglycemia Diagnostic Test (Pha) (Accu-Chek 1 Each Strip) 1 each FS ACHS [facility] Last Admin: 08/07/21 20:34 Dose: 1 each Documented by: Diagnostic Test (Pha) (Accu-Chek 1 Each Strip) 1 each FS ACHS [facility] Last Admin: 08/07/21 22:45 Dose: 1 each Documented by: Docusate Sodium (Docusate Sodium 100 Mg Capsule) 100 mg PO BID [facility] Last Admin: 08/07/21 20:19 Dose: 100 mg Documented by: Famotidine (Famotidine 20 Mg Tablet) 20 mg PO QDAY [facility] Ferrous Sulfate (Ferrous Sulfate 325 Mg Tablet) 325 mg PO QAMCC [place] Glucose (Dextrose 31 Gm Oral.Susp) 15 gm PO PRN PRN PRN Reason: Hypoglycemia Glucose (Dextrose 31 Gm Oral.Susp) 15 gm PO PRN PRN PRN Reason: Hypoglycemia Sodium Chloride (Sodium Chloride 0.9%) 1,000 mls @ 100 mls/hr IV .Q10H [facility] Last Admin: 08/08/21 04:20 Dose: Not Given Documented by: Insulin Human Lispro (Insulin Lispro 1 Unit/0.01 Ml Unit) 0 unit SQ ACHS [facility]; Protocol Last Admin: 08/07/21 20:36 Dose: Not Given Documented by: Insulin Human Lispro (Insulin Lispro 1 Unit/0.01 Ml Unit) 0 unit SQ [facility]; Protocol Last Admin: 08/07/21 22:45 Dose: Not Given Documented by: Iron Carb/Multivit/[place]/Folic Acid (Multivit,Ther Iron,Ca,Fa & Min 1 Tablet) 1 tab PO DAILY [facility] Magnesium Hydroxide (Magnesium Hydroxide 30 Ml Oral.Susp) 30 ml PO BIDP PRN PRN Reason: Constipation Magnesium Oxide (Magnesium Oxide 400 Mg Tablet) 400 mg PO DAILY [facility] Metoprolol Succinate (Metoprolol Succinate 50 Mg Tab.Xl.24h) 50 mg PO BID [facility] Last Admin: 08/07/21 20:19 Dose: 50 mg Documented by: Morphine Sulfate (Morphine 4 Mg/Ml Vial) 0 mg IV Q1HP PRN; Protocol PRN Reason: Per Pain Protocol Multivitamins/Minerals (Vit A,C & E/Lutein/Minerals Tablet) 1 tab PO BID [facility] Last Admin: 08/07/21 20:19 Dose: 1 tab Documented by: Nitroglycerin (Nitroglycerin 0.4 Mg Tab.Subl) 0.4 mg SL Q5M PRN PRN Reason: Chest Pain Clindamycin (Phosphate 1 % Lotion) 1 dose TOPICAL DAILYP PRN PRN Reason: Pain Empagliflozin [ Jardiance] 10 Mg Tablet 1 dose PO QDAY [facility] Senna (Sennosides 1 Tablet) 2 tab PO HS [facility] Last Admin: 08/07/21 20:18 Dose: 2 tab Documented by: Sodium Biphosphate/Sodium Phosphate (Fleets Adult Enema) 1 dose OR Q3-4DAYS PRN PRN Reason: Constipation A/P Assessment and plan (1) Femur fracture: Status: Acute Comment: mobilize with PT Pt may discharge when cleared by hospitalist. f/u at [facility] in 2 weeks. Time Spent With Patient Time: Total time spent is greater than 50% in coordination of care (as documented) at patient's floor/unit and/or counseling patient:
[2021-08-08] MEDS: INSULIN LISPRO 1 UNIT/0.01 ML UNIT SQ SCH ×5 (07:16→20:47)
--- NOTE | 2021-08-08 07:18 | Operative Note ---
DATE OF OPERATION: 08/07/2021 PREOPERATIVE DIAGNOSIS: Left valgus impacted, nondisplaced femoral neck fracture. POSTOPERATIVE DIAGNOSIS: Left valgus impacted, nondisplaced femoral neck fracture. PROCEDURE PERFORMED: Percutaneous screw fixation of a left valgus impacted femoral neck fracture with three 6.5 mm cannulated screws. SURGEON: Ralph De Luna MD SUPERVISOR [employer]: Yoseph Salomon PA-C. This providers expertise and technical skill were required throughout the case. The PA assisted with preoperative coordination, intraoperative retraction, wound closure, and dressing and splint application, as well as postoperative documentation and care coordination. ANESTHESIA: General. DRAINS: None. SPECIMENS: None. COMPLICATIONS: None. ESTIMATED BLOOD LOSS: 30 mL. POSTOPERATIVE CONDITION: Stable. INDICATIONS FOR SURGERY: This is an 83-year-old male who sustained a fall approximately 5 days ago. He had pain and difficulty bearing weight, but became more painful today, so he sought medical treatment. X-rays taken in the ER showed a valgus impacted femoral neck fracture. FINDINGS AT SURGERY: Valgus impacted femoral neck fracture with posterior screw fixation showing satisfactory hardware placement. PROCEDURE IN DETAIL: The patient had been seen preoperatively and informed consent had been obtained after discussion of risks and benefits of surgery. Risks including, but not limited to, bleeding; infection; injury to nerves, blood vessels, other surrounding structures, anesthetic risks; nonunion or malunion of the fracture; failure of hardware fixation; possibility of needing further surgery such as if avascular necrosis develops requiring total hip arthroplasty. He understood these risks and wished to proceed. Correct operative site was marked and the patient was taken to the operating room and general anesthesia was induced. He was carefully positioned onto the fracture table and the left lower extremity was placed in some gentle traction with some mild internal rotation. The nonoperative leg was flexed and abducted out of the way and carefully padded. Fluoroscopy was brought in to verify the fracture was in good position, which it was so went ahead and prepped and draped the left hip and leg in normal sterile fashion. Timeout was performed verifying patient name, operative site, and plan. A guide pin was used under fluoroscopy to identify our approximate trajectory and then a stab incision was made lateral with a scalpel. We spread down to bone with a tonsil clamp and then the guide pin was placed up against bone. We started with our inferior screw, making sure we did not start this below the level of the lesser trochanter. This was passed up along the inferior margin of the femoral neck and checked on lateral tibia to make sure we were central on the lateral view. This was taken up to the subchondral bone. We then used a knife and extended our incision proximally about an inch and then the triangular drill guide was used placing it over our initial pin. We then drilled 2 more guide pins for the 6.5 screws, 1 proximal anterior and 1 proximal posterior. These were checked under fluoroscopy and were taken up to the subchondral bone as well. Once we checked AP and lateral views and marked our pin position on both views we depth gauged to measure and then drilled the near cortex. We then placed three 6.5 cannulated screws over the guide pins getting good bony purchase. We then pulled the guide pins back at different lengths. We then took final fluoro images, AP and lateral views, which showed the screws in good position. We then removed the guide pins. We irrigated copiously with saline. Monocryl was used for subcutaneous and amada for skin. Xeroform and a sterile dressing were applied. The patient was then awakened and transferred to a bed and then extubated and transferred to recovery in stable condition. [email or web address] Job ID: [id number] Doc ID: [id number] Ralph De Luna MD
[2021-08-08] MEDS ORDERED: metFORMIN 500 MG TABLET PO SCH (08:00)
[2021-08-08] MEDS: DOCUSATE SODIUM 100 MG CAPSULE PO SCH ×2 (08:14→20:48)
[2021-08-08] MEDS: FERROUS SULFATE 325 MG TABLET PO SCH (08:14)
[2021-08-08] MEDS: METOPROLOL SUCCINATE 50 MG TAB.XL.24H PO SCH ×2 (08:14→20:48)
[2021-08-08] MEDS: FAMOTIDINE 20 MG TABLET PO SCH (08:14)
[2021-08-08] MEDS: MULTIVIT,THER IRON,CA,FA & MIN 1 TABLET PO SCH (08:14)
[2021-08-08] MEDS: CLOPIDOGREL 75 MG TABLET PO SCH (08:14)
[2021-08-08] MEDS: VIT A,C & E/LUTEIN/MINERALS TABLET PO SCH ×2 (08:14→20:48)
[2021-08-08] MEDS: BISACODYL 5 MG TABLET PO SCH (08:15)
[2021-08-08 08:51] LABS: Basophils # (Auto) 0.02 K/mcL (0.00-0.30); Basophils % (Auto) 0.2 % (0.0-2.0); Eosinophils # (Auto) 0 K/mcL (0.00-0.70); Eosinophils % (Auto) 0 % (0.0-7.0); Hemoglobin 14.6 g/dL (13.7-17.5); Lymphocytes # (Auto) 0.28 K/mcL (1.50-4.80); Mean Cell Volume 99.4 fL (80.0-100.0); Mean Corpuscular HGB Conc 29.8 g/dL (31.0-36.0); Mean Platelet Volume 10.6 fL (7.4-10.4); Monocytes # (Auto) 0.25 K/mcL (0.10-0.90); Monocytes % (Auto) 2.7 % (1.0-12.0); Neutrophils % (Auto) 94.1 % (38.0-78.0); Platelet Count 219 K/mcL (140-440); RBC 4.93 M/mcL (4.63-6.08); Red Cell Distribution Width 12.5 % (11.5-14.5); WBC 9.4 K/mcL (4.5-11.0)
[2021-08-08] MEDS ORDERED: MAGNESIUM OXIDE 400 MG TABLET PO SCH (09:00)
[2021-08-08] MEDS ORDERED: ASPIRIN 325 MG PO SCH (09:00)
[2021-08-08 09:47] LABS: ALT/SGPT 12 U/L (<40); AST/SGOT 21 U/L (<40); Albumin 3.1 gm/dL (3.2-5.2); Albumin/Globulin Ratio 0.8 (1.0-2.3); Alkaline Phosphatase 126 U/L (39-117); Bilirubin,Direct < 0.2 mg/dL (0-0.3); Bilirubin,Total 0.2 mg/dL (0.1-1.0); Blood Urea Nitrogen 23 mg/dL (8-23); Calcium 9.9 mg/dL (8.6-10.4); Carbon Dioxide 17 mmol/L (22-30); Chloride 108 mmol/L (96-108); Glomerular Filtration Rate 45; Glucose 130 mg/dL (70-105); Lactate Dehydrogenase 253 U/L (135-225); Phosphorous 2.3 mg/dL (2.5-4.5); Triglycerides 119 mg/dL (<150); Uric Acid 6.1 mg/dL (2.5-8.0)
[2021-08-08] MEDS ORDERED: SODIUM POLYSTYRENE SULFONATE 15 GM/60 ML SUSPENSION PO ONE (11:50)
--- NOTE | 2021-08-08 11:59 | Internal Med Progress Note ---
SUBJECTIVE Subjective Patient information: Note initiated : 08/08/21 at 11:56 am Service Date, if different from initiated Date: [] Patient: Alex Boucher 86 y/o M admitted on 08/07/21 for Fell Thursday, hip. Chief Complaint: [] Interval history: Mr. Boucher is a 86 year old male admitted for a left femoral neck fracture. The patient has a history of hypertension, type II diabetes mellitus, coronary artery disease, COPD, chronic kidney disease, bladder cancer. He says that he fell a few days ago and has experienced severe left hip pain since that time. On arrival to the ED, orthopedic surgery saw the patient and performed surgical fixation. Subsequently the patient was admitted to the hospital. Postop, he is in today in stable condition. 08/08: potassium elevated today, one dose of Kayexalate given and started sodium bicarbonate tablets for metabolic acidosis in the setting of chronic kidney disease, otherwise the patient seems to be doing ok after surgery. Physical exam Head: Atraumatic, normal inspection. Eyes: normal appearance, no scleral icterus. Neck: full ROM Respiratory: no respiratory distress. Cardiovascular: normal rate and rhythm, S1, S2. GI/Abdominal: soft, nontender, no guarding. Extremities: left hip incision covered with cold pack Neurological: CN II-XII intact, intact motor, intact sensation. Psychiatric: normal mood. Skin: warm, normal color Constitutional Vitals: Vital Signs Temp Pulse Resp BP Pulse Ox 96.8 F L 83 16 133/74 94 08/08/21 07:49 08/08/21 07:49 08/08/21 07:49 08/08/21 07:49 08/08/21 07:49 Period Temp Pulse Resp BP Sys/Branch Pulse Ox Last 24 Hr 96.8 F-97.6 F 60-83 15-20 124-175/59-103 90-100 Intake and Output 08/07/21 08/08/21 08/08/21 21:59 05:59 13:59 Intake Total 3453 139 2211 Output Total 115 1125 250 Balance 1035 -825 1150 Weight 73.164 kg Intake & Output: Intake & Output 08/07/21 08/08/21 08/08/21 21:59 05:59 13:59 Intake Total 0279 503 8305 Output Total 115 1125 250 Balance 1035 -825 1150 Weight 73.164 kg Intake: IV 982 200 5023 Sodium Chloride 0.9% 1,000 ml @ 1000 100 mls/hr IV .Q10H [facility] Rx#: [id number] Sodium Chloride 0.9% 500 ml @ 500 Wide Open IV .Q0M ONE Rx#: [id number] Ancef 2 gm In Dextrose 5% in 50 Water 50 ml @ 100 mls/hr IV PREOP [place] Rx#:[id number] Oral 200 400 IV - Manual Only 600 Output: Urine Catheter Amount 100 1125 Void Amount 250 Estimated Blood Loss 15 Other: Meal Breakfast Percent of Meal Consumed 100% Urine Appearance Cloudy Cloudy Cloudy Mucous Threads Mucous Threads Urine Color Bright Yellow Bright Yellow Dark Yellow Urine Odor Strong Strong Strong OBJ DATA Labs CBC & Chem 7: 08/08/21 05:10 08/08/21 05:10 Labs: Abnormal Lab Results 08/08/21 08/08/21 08/07/21 05:10 05:10 16:38 MCHC 29.8 L MPV 10.6 H Neut % (Auto) 94.1 H Lymph % (Auto) 3.0 L Lymph # (Auto) 0.28 L Absolute Neutrophils 8.84 H PT POC Potassium 5.2 H Potassium 5.9 H* POC Chloride 113 H Carbon Dioxide 17 L POC BUN 29 H BUN Creatinine 1.4 H POC Creatinine 1.6 H Glucose 130 H Phosphorus 2.3 L Magnesium 2.6 H Alkaline Phosphatase 126 H Lactate Dehydrogenase 253 H Albumin 3.1 L Globulin 4.0 H Albumin/Globulin Ratio 0.8 L 08/07/21 08/07/21 08/07/21 12:30 12:30 12:30 MCHC MPV Neut % (Auto) 79.6 H Lymph % (Auto) 7.2 L Lymph # (Auto) 0.65 L Absolute Neutrophils PT 14.6 H POC Potassium Potassium 5.4 H POC Chloride Carbon Dioxide 21 L POC BUN BUN 26 H Creatinine 1.5 H POC Creatinine Glucose 110 H Phosphorus Magnesium Alkaline Phosphatase 122 H Lactate Dehydrogenase Albumin Globulin 3.9 H Albumin/Globulin Ratio 0.9 L Meds: Medications Hydrocodone Bitart/Acetaminophen (Hydrocodone/Apap 5/325mg Tablet) 0 tab PO Q4HP PRN; Protocol PRN Reason: Per Pain Protocol Last Admin: 08/08/21 02:27 Dose: 1 tab Documented by: Atorvastatin Calcium (Atorvastatin 20 Mg Tablet) 40 mg PO QHS [facility] Last Admin: 08/07/21 20:18 Dose: 40 mg Documented by: Bisacodyl (Bisacodyl 10 Mg Supp.Rect) 10 mg IA Q2-3DAYS PRN PRN Reason: Constipation Bisacodyl (Bisacodyl 5 Mg Tablet) 10 mg PO QDAY [facility] Last Admin: 08/08/21 08:15 Dose: 10 mg Documented by: Clopidogrel Bisulfate (Clopidogrel 75 Mg Tablet) 75 mg PO DAILY [facility] Last Admin: 08/08/21 08:14 Dose: 75 mg Documented by: Dextrose (Dextrose 50% 50 Ml Vial) 0 ml IV UD PRN PRN Reason: Hypoglycemia Diagnostic Test (Pha) (Accu-Chek 1 Each Strip) 1 each FS [facility] Last Admin: 08/08/21 11:07 Dose: 1 each Documented by: Docusate Sodium (Docusate Sodium 100 Mg Capsule) 100 mg PO BID [facility] Last Admin: 08/08/21 08:14 Dose: 100 mg Documented by: Famotidine (Famotidine 20 Mg Tablet) 20 mg PO QDAY [facility] Last Admin: 08/08/21 08:14 Dose: 20 mg Documented by: Ferrous Sulfate (Ferrous Sulfate 325 Mg Tablet) 325 mg PO [facility] Last Admin: 08/08/21 08:14 Dose: 325 mg Documented by: Glucose (Dextrose 31 Gm Oral.Susp) 15 gm PO PRN PRN PRN Reason: Hypoglycemia Sodium Chloride (Sodium Chloride 0.9%) 1,000 mls @ 100 mls/hr IV .Q10H [facility] Last Infusion: 08/08/21 08:52 Dose: Infused Documented by: Insulin Human Lispro (Insulin Lispro 1 Unit/0.01 Ml Unit) 0 unit SQ [facility]; Protocol Last Admin: 08/08/21 11:07 Dose: Not Given Documented by: Iron Carb/Multivit/Rippey/Folic Acid (Multivit,Ther Iron,Ca,Fa & Min 1 Tablet) 1 tab PO DAILY [facility] Last Admin: 08/08/21 08:14 Dose: 1 tab Documented by: Magnesium Hydroxide (Magnesium Hydroxide 30 Ml Oral.Susp) 30 ml PO BIDP PRN PRN Reason: Constipation Metoprolol Succinate (Metoprolol Succinate 50 Mg Tab.Xl.24h) 50 mg PO BID [facility] Last Admin: 08/08/21 08:14 Dose: 50 mg Documented by: Multivitamins/Minerals (Vit A,C & E/Lutein/Minerals Tablet) 1 tab PO BID [facility] Last Admin: 08/08/21 08:14 Dose: 1 tab Documented by: Nitroglycerin (Nitroglycerin 0.4 Mg Tab.Subl) 0.4 mg SL Q5M PRN PRN Reason: Chest Pain Clindamycin (Phosphate 1 % Lotion) 1 dose TOPICAL DAILYP PRN PRN Reason: Pain Empagliflozin [ Jardiance] 10 Mg Tablet 1 dose PO QDAY [facility] Last Admin: 08/08/21 08:15 Dose: Not Given Documented by: Senna (Sennosides 1 Tablet) 2 tab PO HS [facility] Last Admin: 08/07/21 20:18 Dose: 2 tab Documented by: Sodium Bicarbonate (Sodium Bicarbonate 650 Mg Tablet) 650 mg PO TID [place] A/P Narrative A/P Narrative: Assessment: 86 year old male with a history of hypertension, type II diabetes mellitus, coronary artery disease, COPD, chronic kidney disease, bladder cancer admitted for left hip fracture s/p surgical fixation with screw placement. #Left femoral neck fracture s/p surgical fixation #Hyperkalemia #Metabolic acidosis likely d/t CKD #Hypertension #Type 2 diabetes mellitus #Coronary artery disease #COPD #CKD IIIb #Hx of bladder cancer Plan -Analgesics prn -Check EKG for hyperkalemia -Kaxelate today, follow potassium level -Start sodium bicarbonate tablets -Essential home medications, hold home Metformin for now. -Follow potassium and renal function. -IV fluid post op -SSI-low -PT -DVT ppx: per ortho -Code status: Full -Dispo: home vs SNF Time Spent With Patient Time: Total time spent is greater than 50% in coordination of care (as documented) at patient's floor/unit and/or counseling patient: QUALITY VTE Deep Vein Thrombosis/Pulmonary Embolism Present on Admission: No
[2021-08-08] MEDS: SODIUM BICARBONATE 650 MG TABLET PO SCH ×3 (12:19→20:48)
--- NOTE | 2021-08-08 19:33 | EKG ---
[facility] Test Date: 2021-08-08 Pat Name: Alex Boucher Department: [facility] Room: 126 Gender: Male [employer] Programs: : 1935 Requested By: Wan Glaser Order Number: [id number] Reading MD: Raf Salmeron Measurements Intervals [place] Rate: 56 P: -12 [place]: 224 QRS: -21 QRSD: 84 T: -11 QT: 396 QTc: 383 Interpretive Statements SINUS RHYTHM FIRST DEGREE AV BLOCK Inferior Qs; not changed from priors Electronically Signed On 08-08-2021 19:33:10 PDT by Raf Salmeron /[id number]
[2021-08-08 19:56] LABS: Albumin 3.1 gm/dL (3.2-5.2); Blood Urea Nitrogen 29 mg/dL (8-23); Calcium 9.7 mg/dL (8.6-10.4); Carbon Dioxide 20 mmol/L (22-30); Chloride 106 mmol/L (96-108); Glomerular Filtration Rate 41; Glucose 142 mg/dL (70-105); Phosphorous 2.6 mg/dL (2.5-4.5)
[2021-08-08] MEDS: SENNOSIDES 1 TABLET PO SCH (20:48)
[2021-08-08] MEDS: ATORVASTATIN 20 MG TABLET PO SCH (20:48)
[2021-08-09] MEDS: 0.9 % SODIUM CHLORIDE 1,000 ML IV SCH (02:30)
[2021-08-09] MEDS: INSULIN LISPRO 1 UNIT/0.01 ML UNIT SQ SCH ×2 (07:54→11:43)
[2021-08-09 08:30] LABS: ALT/SGPT 9 U/L (<40); AST/SGOT 19 U/L (<40); Albumin 3.1 gm/dL (3.2-5.2); Alkaline Phosphatase 101 U/L (39-117); Bilirubin,Direct < 0.2 mg/dL (0-0.3); Bilirubin,Total 0.2 mg/dL (0.1-1.0); Blood Urea Nitrogen 27 mg/dL (8-23); Calcium 9.6 mg/dL (8.6-10.4); Carbon Dioxide 21 mmol/L (22-30); Chloride 109 mmol/L (96-108); Globulin 3.1 gm/dL (2.2-3.7); Glomerular Filtration Rate 49; Glucose 108 mg/dL (70-105); Lactate Dehydrogenase 206 U/L (135-225); Phosphorous 2.7 mg/dL (2.5-4.5); Triglycerides 196 mg/dL (<150); Uric Acid 5.8 mg/dL (2.5-8.0)
[2021-08-09] MEDS: CLOPIDOGREL 75 MG TABLET PO SCH (08:46)
[2021-08-09] MEDS: SODIUM BICARBONATE 650 MG TABLET PO SCH ×2 (08:46→14:31)
[2021-08-09] MEDS: FERROUS SULFATE 325 MG TABLET PO SCH (08:46)
[2021-08-09] MEDS: MULTIVIT,THER IRON,CA,FA & MIN 1 TABLET PO SCH (08:46)
[2021-08-09] MEDS: BISACODYL 5 MG TABLET PO SCH (08:47)
[2021-08-09] MEDS: DOCUSATE SODIUM 100 MG CAPSULE PO SCH (08:47)
[2021-08-09] MEDS: METOPROLOL SUCCINATE 50 MG TAB.XL.24H PO SCH (08:47)
[2021-08-09] MEDS: VIT A,C & E/LUTEIN/MINERALS TABLET PO SCH (08:47)
[2021-08-09] MEDS: FAMOTIDINE 20 MG TABLET PO SCH (08:49)
--- NOTE | 2021-08-09 11:53 | Discharge Summary ---
Discharge Provider Provider Patient information: Note initiated : 08/09/21 at 11:52 am Service Date, if different from initiated Date: [] Patient: Alex Boucher 86 y/o M admitted on 08/07/21 for Fell day, hip. Chief Complaint: [] Date of admission: 08/07/21 18:32 Discharge date: 08/09/21 Primary care physician: Rima Shah Consults: 08/07/21 Consult to Physician [CONS] Stat Comment: Consulting Provider: Wan Glaser Reason For Exam: Physician to Consult 08/07/21 13:01 Consult to Physician [CONS] Stat Comment: Consulting Provider: Ralph De Luna Reason For Exam: Physician to Consult Discharge Meds Discharge Medications Home Medications acetaminophen 500 mg tablet 1,000 mg PO BID PRN tab 01/29/18 [History Confirmed 08/07/21 Last Taken 08/07/21 09:00] aspirin 325 mg tablet 81 mg PO QAM tab 01/29/18 [History Confirmed 08/07/21 Last Taken 08/07/21 09:00] bisacodyl 5 mg tablet,delayed release 10 mg PO QDAY tab 01/29/18 [History Confirmed 08/07/21 Last Taken 08/07/21 09:00] ferrous sulfate 325 mg (65 mg iron) tablet 325 mg PO QDAY tab 01/29/18 [History Confirmed 08/07/21 Last Taken 08/07/21 09:00] vitamins A,C,Z-ozfq-fetbsu 14,320 unit-226 mg-200 unit capsule 1 cap PO BID cap 01/29/18 [History Confirmed 08/07/21 Last Taken 08/06/21 21:00] nitroglycerin 0.4 mg sublingual tablet 0.4 mg SUBLINGUAL Q5-15M PRN 01/18/19 [History Confirmed 08/07/21 Last Taken Unknown] atorvastatin 20 mg tablet 40 mg PO QHS tab 12/07/19 [History Confirmed 08/07/21 Last Taken 08/06/21 21:00] clindamycin phosphate 1 % lotion 1 applic TOPICAL PRN PRN 12/07/19 [History Confirmed 08/07/21 Last Taken Unknown] clopidogrel 75 mg tablet 75 mg PO QDAY 12/07/19 [History Confirmed 08/07/21 Last Taken 08/07/21 09:00] empagliflozin 10 mg tablet 10 mg PO QDAY 12/07/19 [History Confirmed 08/07/21 Last Taken 08/06/21 21:00] metformin 500 mg tablet 250 mg PO QDAY tab 12/07/19 [History Confirmed 08/07/21 Last Taken 08/07/21 09:00] multivitamin 1 tab PO QDAY 12/07/19 [History Confirmed 08/07/21 Last Taken 09:00] metoprolol succinate 100 mg tablet,extended release 24 hr 50 mg PO BID tab 01/05/20 [History Confirmed 08/07/21 Last Taken 08/07/21 09:00] magnesium oxide 400 mg PO QDAY #90 cap 04/10/20 [Rx Confirmed 08/07/21 Last Taken 08/06/21 21:00] famotidine 20 mg tablet 20 mg PO QDAY 08/07/20 [History Confirmed 08/07/21 Last Taken 08/06/21 21:00] oxycodone-acetaminophen [Percocet] 1 tab PO Q8H PRN #7 tab 08/09/21 [Rx Last Taken Unknown] sodium bicarbonate 650 mg PO TID #90 tab 08/09/21 [Rx Last Taken Unknown] COURSE Hospital Course Hospital course: Mr. Boucher is a 86 year old male admitted for a left femoral neck fracture. The patient has a history of hypertension, type II diabetes mellitus, coronary artery disease, COPD, chronic kidney disease, bladder cancer. He says that he fell a few days ago and has experienced severe left hip pain since that time. On arrival to the ED, orthopedic surgery saw the patient and performed surgical fixation. Subsequently the patient was admitted to the hospital. Postop, he is in today in stable condition. 08/08: potassium elevated today, one dose of Kayexalate given and started sodium bicarbonate tablets for metabolic acidosis in the setting of chronic kidney disease, otherwise the patient seems to be doing ok after surgery. 08/09: discharged to home with home health, discussed DVT prophylaxis with Dr. De Luna and ok to use aspirin and plavix which the patient was taking prior to admission. Physical exam Head: Atraumatic, normal inspection. Eyes: normal appearance, no scleral icterus. Neck: full ROM Respiratory: no respiratory distress. Cardiovascular: normal rate and rhythm, S1, S2. GI/Abdominal: soft, nontender, no guarding. Extremities: left hip incision covered with cold pack Neurological: CN II-XII intact, intact motor, intact sensation. Psychiatric: normal mood. Skin: warm, normal color Discharge diagnosis: Hip fracture Time Spent with Patient Time attestation: Total time spent providing and/or coordinating discharge services: EXAM Constitutional Vitals: Temp Pulse Resp BP Pulse Ox 97.3 F 62 20 143/64 95 08/09/21 08:00 08/09/21 08:00 08/09/21 08:00 08/09/21 08:00 08/09/21 08:00 Discharge Data Data Completed and Pending Labs on day of discharge: Labs from last 24 hours 08/09/21 08/08/21 05:51 18:02 Sodium 141 140 Potassium 4.0 4.8 Chloride 109 H 106 Carbon Dioxide 21 L 20 L Anion Gap 11.0 14.0 BUN 27 H 29 H Creatinine 1.3 H 1.5 H GFR Calculation 49 41 Glucose 108 H 142 H Uric Acid 5.8 Calcium 9.6 9.7 Phosphorus 2.7 2.6 Magnesium 2.1 Total Bilirubin 0.2 Direct Bilirubin < 0.2 GGT 38 AST 19 ALT 9 Alkaline Phosphatase 101 Lactate Dehydrogenase 206 Total Protein 6.2 Albumin 3.1 L 3.1 L Globulin 3.1 Albumin/Globulin Ratio 1.0 Triglycerides 196 H Discharge Plan Patient/Caregiver Discharge Instructions Activity: as per physical therapy Diet: Regular Diet Prescriptions: New sodium bicarbonate 650 mg Tablet 650 mg PO TID Qty: 90 RF: 4 oxycodone-acetaminophen [Percocet] 5-325 mg tablet 1 tab PO Q8H PRN (Reason: pain) Qty: 7 RF: 0 Continued magnesium oxide 400 mg magnesium capsule 400 mg PO QDAY Qty: 90 RF: 4 aspirin 325 mg tablet 81 mg PO QAM RF: 0 bisacodyl [Dulcolax (bisacodyl)] 5 mg tablet,delayed release (DR/EC) 10 mg PO QDAY RF: 0 ferrous sulfate 325 mg (65 mg iron) tablet 325 mg PO QDAY RF: 0 vitamins A,C,W-zecs-osucxl [PreserVision AREDS] 14,320-226-200 nklh-lh-zpow capsule 1 cap PO BID RF: 0 acetaminophen [Tylenol Extra Strength] 500 mg tablet 1,000 mg PO BID PRN (Reason: Pain) RF: 0 nitroglycerin 0.4 mg tablet, sublingual 0.4 mg SUBLINGUAL Q5-15M PRN (Reason: Chest Pain) RF: 0 atorvastatin [Lipitor] 20 mg tablet 40 mg PO QHS RF: 0 metformin 500 mg tablet 250 mg PO QDAY RF: 0 famotidine 20 mg tablet 20 mg PO QDAY RF: 0 metoprolol succinate 100 mg tablet extended release 24 hr 50 mg PO BID RF: 0 clindamycin phosphate 1 % lotion 1 applic TOPICAL PRN PRN (Reason: Pain) RF: 0 clopidogrel 75 mg tablet 75 mg PO QDAY RF: 0 Jardiance 10 mg tablet 10 mg PO QDAY RF: 0 multivitamin Tablet 1 tab PO QDAY RF: 0 Other Ambulatory Orders: OT Discharge Order (Routine) Location: None Selected Ordered By: Wan Glaser Physical Therapy at Discharge - General (Routine) Location: None Selected Ordered By: Wan Glaser Follow Up Plan Follow up with: Rima Shah ARNP [Primary Care Provider] - Erickson Salomon PA-C [Physician [employer]] - 08/23/21 Patient Disposition: Home Health Service Prognosis: Fair Overall status at discharge: patient is progressing back to baseline Discharge Orders: Discharge Order (Routine); Ordered 08/09/21 Ordered By: Wan Glaser QUALITY VTE Deep Vein Thrombosis/Pulmonary Embolism Present on Admission: No
== END 2021-08-09 15:45 | disposition home health service (06) | DRG 481 ==
LOC: ED 10:00 → SUR 17:02 → MEDSUR 18:32
PROVIDERS: ADMIT Internal Medicine; ATTEND Internal Medicine